=== PATIENT | female | born 1965 ===

== ENCOUNTER 2024-12-06 08:22 | Outpatient (OUT) | payer OTHER, SELFPAY ==
--- NOTE | 2024-12-06 | XR_ITS ---
[address] [address] Patient Name: SEVERO CARRASCO MRN: [id number] date: 1965 Sex: F Assigned Patient Location: Current Patient Location: Accession/Order Number: [id number] Exam Date: 12/06/2024 08:23 Report Date: 12/06/2024 21:49 At the request of: THU DONG Procedure: XR finger RT min 2V EXAM: XR finger RT min 2V HISTORY: RIGHT FINGER PAIN COMPARISON: None. FINDINGS/IMPRESSION: 1. Mildly displaced fracture of the fourth distal phalanx. There is overlying soft tissue swelling. 2. No significant joint degeneration. 3. Normal alignment of the wrist. Electronically authenticated by: TERENCE LIAO Date: 12/06/2024 21:49
== END 2024-12-06 08:23 | disposition home or self-care (01) ==
LOC: EC 08:22
PROVIDERS: Visit Provider Orthopaedic Surgery
DX: S62.654B Nondisplaced fracture of middle phalanx of right ring finger, initial encounter for open fracture (principal)
CPT/HCPCS: 73140

== ENCOUNTER 2024-12-27 08:18 | Outpatient (OUT) | payer OTHER, SELFPAY ==
--- NOTE | 2024-12-27 | XR_ITS ---
The [address] [address] Patient Name: SEVERO CARRASCO MRN: [id number] date: 1965 Sex: F Assigned Patient Location: Current Patient Location: Accession/Order Number: [id number] Exam Date: 12/27/2024 08:19 Report Date: 12/27/2024 08:43 At the request of: THU DONG Procedure: XR finger RT min 2V PROCEDURE: XR finger RT min 2V COMPARISON: 12/06/2024 HISTORY: RIGHT FINGER PAIN FINDINGS: BONES:Stable complex fracture involving the fourth distal phalanx. Increase in lysis with no significant bony bridging. No dislocation SOFT TISSUES:Soft tissue swelling tip of the fourth finger EFFUSION:None visible. OTHER: Negative. XR/XR finger RT min 2V IMPRESSION: Grossly stable complex fracture of the fourth distal phalanx with no significant interval bone formation Electronically authenticated by: MATTY APARICIO Date: 12/27/2024 08:43
--- OUTSIDE RECORDS SUMMARY | 2024-12-27 08:33 | XMS_ITS | CCD ---
Author Organization [facility] Care Team Providers Care Rand Sewer Name Role Phone Unavailable Primary Care Provider UnavailAce Harrell MD Primary Care Provider Ace Quigley MD Primary Care Provider ACE QUIGLEY Primary Care Unavailable ENEDINA SMYTH Attending Unavailable OTTO HERNANDEZ Admitting Unavailable OTTO HERNANDEZ Attending Unavailable ACE QUIGLEY Primary Care Unavailable ACE QUIGLEY Primary Care Unavailable JOANIE BEASLEY Referring Unavailable JOANIE BEASLEY Referring Unavailable ACE QUIGLEY Primary Care Unavailable ACE UQIGLEY Referring Unavailable ACE QUIGLEY Primary Care Unavailable ACE QUIGLEY Primary Care Unavailable PIYUSH KUNZ Attending Unavailable Medications Current Medications Medication Drug Class(es) Dates Sig (Normalized) Sig (Original) cephalexin 500 mg oral capsule (2 sources) Cephalosporin Antibacterial Start: 11-21-2024 End: 11-28-2024 take 1 capsule by mouth three times daily cephALEXin (KEFLEX) 500 MG capsule Take 1 capsule by mouth 3 times daily for 7 days 21 capsule 11/21/2024 11/28/2024 Active Start: 11-21-2024 End: 11-21-2024 take 1 dose by mouth once 500 mg, Oral, ONCE, 1 dose, On 11/21/24 at 1115, Antimicrobial Indications: Skin and Soft Tissue Infection 12 hr guaiFENesin 600 mg / pseudoephedrine hydrochloride 60 mg extended release oral tablet (1 source) alpha-Adrenergic Agonist Start: 08-18-2021 pseudoephedrine-guaiFENesin (MUCINEX D) 60-600 MG per extended release tablet 1 twice daily as needed for congestion 20 tablet 1 08/18/2021 Active Start: 08-18-2021 pseudoephedrin e-guaiFENesin (MUCINEX D) 60-600 MG per extended release tablet 1 twice daily as needed for congestion 20 tablet 1 08/18/2021 Active hyoscyamine sulfate 0.125 mg sublingual tablet (1 source) Start: 04-18-2013 End: 08-18-2021 hyoscyamine (LEVSIN/SL) 0.[address] 1 tablet under the tongue every 4 hours as needed for Cramping. 15 tablet 0 04/18/2013 08/18/2021 Discontinued (LIST CLEANUP) losartan potassium 25 mg oral tablet (4 sources) Angiotensin 2 Receptor Gigi Start: 01-13-2024 take 1 tablet by mouth at bedtime losartan (COZAAR) 25 MG tablet Indications: Primary hypertension Take 1 tablet by mouth in the morning and at bedtime 180 tablet 3 01/13/2024 Active Start: 11-28-2022 take 1 tablet by ella th once daily losartan (COZAAR) 25 MG tablet Indications: Primary hypertension Take 1 tablet by mouth daily 30 tablet 3 11/28/2022 Active metoprolol tartrate 25 mg oral tablet (4 sources) beta-Adrenergic Gigi Start: 01-13-2024 take 0.5 tablet by mouth twice daily metoprolol tartrate (LOPRESSOR) 25 MG tablet Indications: Primary hypertension Take 0.5 tablets by mouth 2 times daily 30 tablet 2 01/13/2024 Active Start: 11-28-2022 take 0.5 tablet by m outh twice daily metoprolol tartrate (LOPRESSOR) 25 MG tablet Indications: Primary hypertension Take 0.5 tablets by mouth 2 times daily 30 tablet 2 11/28/2022 Active mirtazapine 15 mg oral table t (3 sources) Start: 01-15-2022 mirtazapine (R EMERON) 15 MG tablet Take 1 tablet by mouth 0 01/15/2022 Active Completed/Discontinued Medications Medication Drug Class(es) Dates Sig (Normalized) Sig (Original) 10 ml lidocaine hydrochloride 10 mg/ml injection (1 source) Antiarrhythmic, Amide Local Anesthetic Start: 11-21-2024 End: 11-21-2024 5 mL, IntraDERmal, ONCE, 1 dose, On 11/21/24 at 1015 Problems Active Problems Problem Classification Problem Date Documented Da te Episodic/Chronic Essential hypertension (6 sources) Essential hypertension; Translations: [Essential (primary) hypertension] Onset: 09-18-2021 09-18-2021 Chronic Fracture of upper limb (2 sources) Open fracture of distal phalanx of finger; Translations: [Displaced fracture of distal phalanx of unspecified finger, initial encounter for open fracture] Onset: 11-21-2024 11-21-2024 Episodic Open wounds of extremities (2 sources) Laceration of right ring finger; Translations: [Laceration without foreign body of right ring finger without damage to nail, initial encounter] Onset: 11-21-2024 11-21-2024 Episodic Other lower respiratory disease (2 sources) Dyspnea; Translations: [Shortness of breath] Episodic Other screening for suspected conditions (not mental disorders or infectious disease) (2 sources) Patient encounter status; Translations: [Encounter for screening for malignant neoplasm of colon] Onset: 03-17-2024 03-04-2024 Episodic Otitis media and related conditions (1 source) Dysfunction of right eustachian tube; Translations: [Other specified disorders of Eustachian tube, right ear] Episodic Past or Other Problems Problem Classification Problem Date Documented Da te Episodic/Chronic Nonspecific chest pain (3 sources) Chest pain; Translations: [Chest pain, unspecified] Onset: 03-25-2023 Episodic Other ear and sense organ disorders (4 sources) Tinnitus of vascular origin; Translations: [Pulsatile tinnitus, left ear] Onset: 10-31-2021 10-31-2021 Episodic Other gastrointestinal disorders (1 source) Stool DNA-based colorectal cancer screening positive; Translations: [Other fecal abnormalities] Onset: 03-16-2024 03-16-2024 Episodic Other lower respiratory disease (1 source) Shortness of breath; Translations: [Shortness of breath] Onset: 04-22-2023 Episodic Other nervous system disorders (1 source) Paresthesia of skin; Translations: [Paresthesia of skin] Onset: 03-25-2023 Episodic Results Test Name Value Interpretation Reference Range Facility [facility] 11-21-2024 Piyush Kunz DO 11/21/2024 11:37 AM [facility] Date/Time: 11/21/2024 10:04 AM Performed by: Piyush Kunz DO Authorized by: Piyush Kunz DO Consent: Consent obtained: Verbal Consent given by: Patient Risks discussed: Need for additional repair, infection, nerve damage, poor wound healing, vascular damage and pain Chaplin protocol: Procedure explained and questions answered to patient or proxy's satisfaction: yes Relevant documents present and verified: yes Test results available: yes Imaging studies available: yes Patient identity confirmed: Verbally with patient and hospital-assigned identification number Anesthesia: Anesthesia method: Local infiltration Local anesthetic: Lidocaine 1% w/o epi Laceration details: Location: Finger Finger location: R ring finger Exploration: Wound extent: fascia violated Contaminated: yes Treatment: Area cleansed with: Povidone-iodine Amount of cleaning: Extensive Irrigation solution: Sterile saline and sterile water Irrigation method: Pressure wash Debridement: None Undermining: None Layers/structures repaired: Deep subcutaneous Deep subcutaneous: Suture size: 4-0 Skin repair: Repair method: Sutures Suture size: 4-0 Suture material: Nylon Suture technique: Simple interrupted Number of sutures: 4 Approximation: Approximation: Loose Post-procedure details: Dressing: Splint for protection and non-adherent dressing Procedure completion: Tolerated well, no immediate complications Comments: Due to the pulp of the distal phalanx protruding out slightly from the laceration and underlying nondisplaced tuft fracture I placed 4 loose stitches to approximate laceration. The wound was thoroughly cleansed with Betadine and sterile saline prior to placing the sutures. Patient's tetanus was updated and antibiotics were started. Patient is supposed to follow-up with occupational health tomorrow. Splint was also applied for protection. [facility] XR HAND RIGHT (MIN 3 VIEWS)o n 11-21-2024 XR HAND RIGHT (MIN 3 VIEWS) EXAMINATION: THREE XRAY VIEWS OF THE RIGHT HAND 11/21/2024 10:05 am COMPARISON: None. HISTORY: ORDERING SYSTEM PROVIDED HISTORY: pain, laceration 4th digit. TECHNOLOGIST PROVIDED HISTORY: pain, laceration 4th digit. FINDINGS: Mineralization appears normal. There is soft tissue swelling and laceration at the 4th digit distally. There is an oblique fracture of the shaft of the 4th distal phalanx which is not significantly displaced. A portion of the cortex dorsally appears impacted into the medullary cavity. Elsewhere, no fracture dislocation is identified. The joint spaces are unremarkable. IMPRESSION: Soft tissue swelling and laceration at the 4th digit distally with a nondisplaced oblique fracture of the shaft of the 4th distal phalanx. A portion of the cortex dorsally is impacted. Interpreted by: Lai Russell MD Signed by: Lai Russell MD 11/21/24 Final result Normal [facility] XR Hand - right 3 Viewson Soft tissue swelling and laceration at the 4th digit distally with a nondisplaced oblique fracture of the shaft of the 4th distal phalanx. A portion of the cortex dorsally is impacted. [facility] EXAMINATION: THREE XRAY VIEWS OF THE RIGHT HAND 11/21/2024 10:05 am COMPARISON: None. HISTORY: ORDERING SYSTEM PROVIDED HISTORY: pain, laceration 4th digit. TECHNOLOGIST PROVIDED HISTORY: pain, laceration 4th digit. FINDINGS: Mineralization appears normal. There is soft tissue swelling and laceration at the 4th digit distally. There is an oblique fracture of the shaft of the 4th distal phalanx which is not significantly displaced. A portion of the cortex dorsally appears impacted into the medullary cavity. Elsewhere, no fracture dislocation is identified. The joint spaces are unremarkable. [facility] Lai Russell MD - 11/21/2024 EXAMINATION: THREE XRAY VIEWS OF THE RIGHT HAND 11/21/2024 10:05 am COMPARISON: None. HISTORY: ORDERING SYSTEM PROVIDED HISTORY: pain, laceration 4th digit. TECHNOLOGIST PROVIDED HISTORY: pain, laceration 4th digit. FINDINGS: Mineralization appears normal. There is soft tissue swelling and laceration at the 4th digit distally. There is an oblique fracture of the shaft of the 4th distal phalanx which is not significantly displaced. A portion of the cortex dorsally appears impacted into the medullary cavity. Elsewhere, no fracture dislocation is identified. The joint spaces are unremarkable. IMPRESSION: Soft tissue swelling and laceration at the 4th digit distally with a nondisplaced oblique fracture of the shaft of the 4th distal phalanx. A portion of the cortex dorsally is impacted. [facility] Radiology Study observation (narrative) [facility] XR Hand - right 3 ViewsOrder ed By: Lai Russell on 11-21-2024 [facility] [employer] Work Phone: Surgical Pathology Reporton 03-17-2024 Surgical Pathology Report (NOTE) Path Number: [id number] -- Diagnosis -- Sigmoid colon, polyp, biopsy: Tubular adenoma. Maximo Byrd M.D. Electronically Signed Out rdd/03/19/2024 Clinical Information Pre-Op Diagnosis: COLON CANCER SCREENING Operative Findings: SIGMOID COLON POLYP Operation Performed: COLONOSCOPY POLYPECTOMY HOT kb Source of Specimen A: SIGMOID COLON POLYP Gross Description JUDIT TOLLIVER SIGMOID COLON POLYP Received in formalin is a 0.7 x 0.6 x 0.4 cm polypoid portion of oscar tissue, inked and bisected. Entirely 1cs. jj tm Chantal Magallanes/kb2:03/18/2024 Microscopic Description Microscopic examination performed. Processing Lab: [address] [id number] Interpretation Performed at [address] [id number] SURGICAL PATHOLOGY CONSULTATION Patient Name: JUDIT TOLLIVER Med Rec: [id number] [facility] [employer] [facility] ANATOMIC PATHOLOGY [address] [place] [id number] Normal [facility] CARDIAC STRESS TESTon 2022 CARDIAC STRESS TEST [facility] [address] [place] [address] CARDIAC STRESS TEST PATIENT NAME: JUDIT TOLLIVER : 1965 MED REC NO: [id number] ROOM: ACCOUNT NO: [id number] ADMIT DATE: 04/22/2023 PROVIDER: Jayme Beasley MD DATE OF STUDY: 04/22/2023 NAME OF TEST: Treadmill Myoview stress test. REASON FOR TEST: Chest pain. The patient exercised 5 minutes on accelerated Adarsh protocol. Peak heart rate was 139, which is 85% of maximum predicted heart rate. She achieved 8.5 METs. She had no chest pain. She had borderline ST depression inferolaterally, which did not quite meet significance. She did have PVCs. This is a borderline stress test with mild ST depression inferolaterally, not quite meeting significance for ischemia. Myoview to follow. JAYME BEASLEY MD [id number] Doc#: [id number] CC: Ace Sarkarlalito Normal [facility] APTTon 03-25-2023 aPTT Coag (Bld) [Time] 30.8 s Normal 23.9-33.8 [facility] Comment on above: Result Comment: IV Heparin Therapy Range: 62.0-94.0 Performed By: #### C DP, TROPI, PT, PTT, BMP, BNP #### [facility] [address] [place], [place] [id number] Emergency Medical Technician Basic: Bunny Jenkins MD Basic Metabolic Profon 03-25 Anion gap [Moles/Vol] 10 mmol/L Normal 08-03 [facility] Comment on above: Performed By: #### C DP, TROPI, PT, PTT, BMP, BNP #### [facility] [address] [place], [place] [id number] Emergency Medical Technician Basic: Bunny Jenkins MD BUN/CRE Ratio 11 Normal - [facility] Comment on above: Performed By: #### C DP, TROPI, PT, PTT, BMP, BNP #### [facility] [address] [place], [place] [id number] Emergency Medical Technician Basic: Bunny Jenkins MD Calcium [Mass/Vol] 9.4 mg/dL Normal 8.6-10.4 [facility] Comment on above: Performed By: #### C DP, TROPI, PT, PTT, BMP, BNP #### [facility] [address] [place], [place] [id number] Emergency Medical Technician Basic: Bunny Jenkins MD Chloride [Moles/Vol] 103 mmol/L Normal 98-107 [facility] Comment on above: Performed By: #### C DP, TROPI, PT, PTT, BMP, BNP #### [facility] [address] [place], [place] [id number] Emergency Medical Technician Basic: Bunny Jenkins MD CO2 [Moles/Vol] 24 mmol/L Normal 20-31 [facility] Comment on above: Performed By: #### C DP, TROPI, PT, PTT, BMP, BNP #### [facility] [address] [place] [address] Emergency Medical Technician Basic: Bunny Jenkins MD Creatinine [Mass/Vol] 0.83 mg/dL Normal 0.50-0.90 [facility] Comment on above: Performed By: #### C DP, TROPI, PT, PTT, BMP, BNP #### [facility] [address] [place] [address] Emergency Medical Technician Basic: Bunny Jenkins MD GFR/1.73 sq M.predicted among non-blacks MDRD (S/P/Bld) [Vol rate/Area] mL/min/{1.73_m2} Normal >60 [facility] Comment on above: Result Comment: These results are not intended for use in patients <18 years of age. eGFR results are calculated without a race factor using the 2020 CKD-EPI equation. Careful clinical correlation is recommended, particularly when comparing to results calculated using previous equations. The CKD-EPI equation is less accurate in patients with extremes of muscle mass, extra-renal metabolism of creatine, excessive creatine ingestion, or following therapy that affects renal tubular secretion. Performed By: #### C DP, TROPI, PT, PTT, BMP, BNP #### [facility] [address] [place] [address] Emergency Medical Technician Basic: Bunny Jenkins MD Glucose [Mass/Vol] 108 mg/dL High 70-99 [facility] Comment on above: Performed By: #### C DP, TROPI, PT, PTT, BMP, BNP #### [facility] [address] [place] [address] Emergency Medical Technician Basic: Bunny Jenkins MD Potassium [Moles/Vol] 3.1 mmol/L Low 3.7-5.3 [facility] Comment on above: Performed By: #### C DP, TROPI, PT, PTT, BMP, BNP #### [facility] [address] [place] [address] Emergency Medical Technician Basic: Bunny Jenkins MD Sodium [Moles/Vol] 137 mmol/L Normal 135-144 [facility] Comment on above: Performed By: #### C DP, TROPI, PT, PTT, BMP, BNP #### [facility] [address] [place] [address] Emergency Medical Technician Basic: Bunny Jenkins MD Urea nitrogen [Mass/Vol] 9 mg/dL Normal 6-20 [facility] Comment on above: Performed By: #### C DP, TROPI, PT, PTT, BMP, BNP #### [facility] [address] [place] [id number] Emergency Medical Technician Basic: Bunny Jenkins MD Brain Natri. Peptideon 03-25 Natriuretic peptide B (Bld) [Mass/Vol] 422 pg/mL High <300 [facility] Comment on above: Result Comment: An age-independent cutoff point of 300 pg/ml has a 98% negative predictive value excluding acute heart failure. Performed By: #### C DP, TROPI, PT, PTT, BMP, BNP #### [facility] [address] [place] [address] Emergency Medical Technician Basic: Bunny Jenkins MD CBC with Diffon 03-25-2023 Abs. Basophil 0.00 k/uL Normal 0.0-0.2 [facility] Comment on above: Performed By: #### C DP, TROPI, PT, PTT, BMP, BNP #### [facility] [address] [place] [address] Emergency Medical Technician Basic: Bunny Jenkins MD Abs.Neutrophil (Seg) 3.30 k/uL Normal 2.5-7.0 [facility] Comment on above: Performed By: #### C DP, TROPI, PT, PTT, BMP, BNP #### [facility] [address] [place] [address] Emergency Medical Technician Basic: Bunny Jenkins MD Auto Diff Performed YES Normal [facility] Comment on above: Performed By: #### C DP, TROPI, PT, PTT, BMP, BNP #### [facility] [address] [place] [address] Emergency Medical Technician Basic: Bunny Jenkins MD Basophils/100 WBC (Bld) 1 % Normal 0-2 [facility] Comment on above: Performed By: #### C DP, TROPI, PT, PTT, BMP, BNP #### [facility] [address] [place] [address] Emergency Medical Technician Basic: Bunny Jenkins MD Eosinophils (Bld) [#/Vol] 0.10 10*3/uL Normal 0.0-0.4 [facility] Comment on above: Performed By: #### C DP, TROPI, PT, PTT, BMP, BNP #### [facility] [address] [place] [address] Emergency Medical Technician Basic: Bunny Jenkins MD Eosinophils/100 WBC (Bld) 1 % Normal 0-5 [facility] Comment on above: Performed By: #### C DP, TROPI, PT, PTT, BMP, BNP #### [facility] [address] [place] [address] Emergency Medical Technician Basic: Bunny Jenkins MD Erythrocyte distribution width (RBC) [Ratio] 13.0 % Normal 12.1-15.2 [facility] Comment on above: Performed By: #### C DP, TROPI, PT, PTT, BMP, BNP #### [facility] [address] [place] [address] Emergency Medical Technician Basic: Bunny Jenkins MD Hematocrit (Bld) [Volume fraction] 32.2 % Low 36-46 [facility] Comment on above: Performed By: #### C DP, TROPI, PT, PTT, BMP, BNP #### [facility] [address] [place] [id number] Emergency Medical Technician Basic: Bunny Jenkins MD Hemoglobin (Bld) [Mass/Vol] 10.9 g/dL Low 12.0-16.0 [facility] Comment on above: Performed By: #### C DP, TROPI, PT, PTT, BMP, BNP #### [facility] [address] [place] [address] Emergency Medical Technician Basic: Bunny Jenkins MD Lymphocytes (Bld) [#/Vol] 3.10 10*3/uL Normal 1.0-4.8 [facility] Comment on above: Performed By: #### C DP, TROPI, PT, PTT, BMP, BNP #### [facility] [address] [place] [address] Emergency Medical Technician Basic: Bunny Jenkins MD Lymphocytes/100 WBC (Bld) 45 % High 15-40 [facility] Comment on above: Performed By: #### C DP, TROPI, PT, PTT, BMP, BNP #### [facility] [address] [place] [address] Emergency Medical Technician Basic: Bunny Jenkins MD MCH (RBC) [Entitic mass] 30.9 pg Normal 26-34 [facility] Comment on above: Performed By: #### C DP, TROPI, PT, PTT, BMP, BNP #### [facility] [address] [place] [address] Emergency Medical Technician Basic: Bunny Jenkins MD MCHC (RBC) [Mass/Vol] 33.7 g/dL Normal 31-37 [facility] Comment on above: Performed By: #### C DP, TROPI, PT, PTT, BMP, BNP #### [facility] [address] [place] [address] Emergency Medical Technician Basic: Bunny Jenkins MD MCV (RBC) [Entitic vol] 91.8 fL Normal 80-100 [facility] Comment on above: Performed By: #### C DP, TROPI, PT, PTT, BMP, BNP #### [facility] [address] [place] [address] Emergency Medical Technician Basic: Bunny Jenkins MD Monocytes (Bld) [#/Vol] 0.40 10*3/uL Normal 0.0-1.0 [facility] Comment on above: Performed By: #### C DP, TROPI, PT, PTT, BMP, BNP #### [facility] [address] [place] [address] Emergency Medical Technician Basic: Bunny Jenkins MD Monocytes/100 WBC (Bld) 6 % Normal 4-8 [facility] Comment on above: Performed By: #### C DP, TROPI, PT, PTT, BMP, BNP #### [facility] [address] [place] [address] Emergency Medical Technician Basic: Bunny Jenkins MD Neutrophil (Seg) 47 % Normal 47-75 [facility] Comment on above: Performed By: #### C DP, TROPI, PT, PTT, BMP, BNP #### [facility] [address] [place] [address] Emergency Medical Technician Basic: Bunny Jenkins MD Platelets (Bld) [#/Vol] 201 10*3/uL Normal 140-450 [facility] Comment on above: Performed By: #### C DP, TROPI, PT, PTT, BMP, BNP #### [facility] [address] [place], [place] [id number] Emergency Medical Technician Basic: Bunny Jenkins MD RBC (Bld) [#/Vol] 3.51 10*6/uL Low 4.0-5.2 [facility] Comment on above: Performed By: #### C DP, TROPI, PT, PTT, BMP, BNP #### [facility] [address] [place], [place] [id number] Emergency Medical Technician Basic: Bunny Jenkins MD WBC (Bld) [#/Vol] 7.0 10*3/uL Normal 3.5-11.0 [facility] Comment on above: Performed By: #### C DP, TROPI, PT, PTT, BMP, BNP #### [facility] [address] [place], [place] [id number] Emergency Medical Technician Basic: Bunny Jenkins MD PTon 03-25-2023 INR Coag (PPP) [Relative time] 1.0 {INR} Normal [facility] Comment on above: Result Comment: Therapeutic Range: Moderate Anticoagulant Intensity: INR = 2.0-3.0 High Anticoagulant Intensity: INR = 2.5-3.5 Performed By: #### C DP, TROPI, PT, PTT, BMP, BNP #### [facility] [address] [place], [place] [id number] Emergency Medical Technician Basic: Bunny Jenkins MD PT Coag (PPP) [Time] 13.4 s Normal 11.5-14.2 [facility] Comment on above: Performed By: #### C DP, TROPI, PT, PTT, BMP, BNP #### [facility] [address] [place], [place] [id number] Emergency Medical Technician Basic: Bunny Jenkins MD Troponinon 03-25-2023 Troponin, High Sens <6 Normal 0-14 [facility] Comment on above: Result Comment: High Sensitivity Troponin values cannot be compared with other Troponin methodologies. Performed By: #### T ROPI #### [facility] [address] [place] [address] Emergency Medical Technician Basic: Bunny Jenkins MD Troponin, High Sens 7 ng/L Normal 0-14 [facility] Comment on above: Result Comment: High Sensitivity Troponin values cannot be compared with other Troponin methodologies. Performed By: #### C DP, TROPI, PT, PTT, BMP, BNP #### [facility] [address] [place], [place] [id number] Emergency Medical Technician Basic: Bunny Jenkins MD XR CHEST PORTABLEon 03-25-20 XR CHEST PORTABLE EXAM: XR CHEST PORTABLE HISTORY: Reason for exam:->chest pain COMPARISON: Two-view chest from 11/28/2009. TECHNIQUE: Portable chest was done at 6:11 PM. FINDINGS: Trachea, mediastinum and heart size are unremarkable. No infiltrate or nodule or effusion or pneumothorax is noted. The diaphragm and bony elements are intact. IMPRESSION: Nonacute portable chest. Interpreted by: Arian Leyva DO Signed by: Arian Leyva DO 03/25/23 Final result Normal [facility] Workers' Comp Officeon 12-12 Workers' Comp Office [id number] Normal [facility] Progress Note-Physicianon Progress Note-Physician Patient: JUDIT TOLLIVER Age: 55 years Sex: Female : 1965 Associated Diagnoses: None Author: Sandra COTTON, Daniel Bruce Basic Information F IN: [id number]: Date of injury: 11/27/2020. Subjective 55-year-old female presents today for follow-up acute injury. To summarize: Patient was working when she stepped off an antifatigue mat and misjudged the depth of the math in the differential. As she stepped down she noticed an acute pain in the right hip. She continued to have pain when she stepped down with her right foot. She was seen on the day of injury. She was started on a course of prednisone as well as ice and not heat. Patient reported the pain got worse over the next couple of days despite intervention. She saw a chiropractor and was adjusted on 11/28/2020 as well as 11/30/2020. She returned to occupational health on 12/04/2020. At that time she was still having pain most in the area of the upper buttock. Pain tended to go down towards midline in the lower aspect of her but into the area of the distal sacrum just off midline on the right side. The pain that was wrapping around more obvious and initial presentation was not as dramatic. She complained of weakness when standing for any period of time particular that leg. Patient reported on that date that had standing bending over to touch her toes actually seems to help. She was tolerating the prednisone not having difficulty with regards to heartburn acid reflux or change in stool. On that date we ordered x-rays of the right hip and pelvis as well as the lumbar sacral spine to better elucidate why source of the injury and pain process. We left her on light duty at work until we could review x-rays and gave her a slightly longer period of time to reduce irritability to the region. Advised return to occupational health clinic for review of x-rays and repeat exam on 12/11/2020. Patient returns today in the middle of her shift. She is currently on light duty as described above. Her last dose of any type of medication was ibuprofen earlier today. She states that her current level of discomfort is about a 2 at worst. Typically it is just the upper part of her buttock feels like it is bruised to a certain extent. She denies any change in bowel or bladder she denies any change in strength gait or coordination. Denies any loss of sensation. She personally feels like she is ready to return to work. We have discussed the nature of the injury at length. Have reviewed the results of her x-rays with her and shoulder the type radiological report. Explained to the patient I believe that the injury occurred when she stepped down tighten up her upper gluteal muscle and then pushed the branches of the sciatic nerve against her bony structure suffering injury that then resulted in irritability and spasm. Suggested to her that continuing to be flexible as well as attention to body mechanics should help reduce the chances for further issues. Review of Systems 10 point review of systems otherwise negative. Health Status Allergies: Allergic Reactions (Selected) No Known Allergies Current medications: Home Medications (3) Active hyoscyamine ibuprofen Tylox 500 mg-5 mg Cap 1 cap(s), PRN, Oral, q4hr Problem list: Patient Stated Tobacco use / SNOMED CT [id number]- [id number] / Confirmed Added secondary to social history documentation. All Problems Calculus of gallbladder / SNOMED CT [id number]- [id number] / Confirmed Cholecystitis / SNOMED CT [id number]- [id number] / Confirmed Tobacco use / SNOMED CT [id number]- [id number] / Confirmed Added secondary to social history documentation. Histories Past Medical History: Active Calculus of gallbladder ([id number]-442H-6537 -[id number]-[id number]) Cholecystitis ([id number] -[id number]) Family History: No family history items have been selected or recorded. Social History Social & Psychosocial Habits Alcohol 04/27/2013 Use: Current Frequency: 1-2 times per month Substance Abuse 04/27/2013 Risk Assessment: Denies Substance Abuse Tobacco 04/27/2013 Tobacco Use: Current Type: Cigarettes Comment: 1 ppd - 04/27/2013 16:16 - Jayna RN, BSN, Jojo . Objective No qualifying data available Constitutional: Slender white female no apparent distress. Musculoskeletal: Sitting without difficulty. Normal lumbar lordosis. Negative discomfort or weakness with hip flexion and in sitting position. Negative discomfort or hesitation with hip flexion and extension of the knee while sitting. Standing without limitation to flexion able to bring fingers to toes without difficulty. Bilateral lateral hip up into the low back region without tenderness no tenderness over bilateral SI notch. Upper gluteal region on the right side minimally tender to palpation. Neurologic: Deep tendon reflexes patellar 2+ bilateral equal, bilateral Achilles 2+ without clonus. Review / Management Radiology results: X-ray, 12/06/2020: 3 views of the pelvis and right hip: Indication: Sciatica Findings: No lytic or sclerotic lesions. No acute fracture or subluxation. Bones are in anatomic alignment. Soft tissues are unremarkable. Impression no acute osseous changes. X-ray spine lumbosacral minimum 4 views Indication: Sciatica Findings: No lytic or sclerotic lesions. There is no acute fracture or subluxation. There is no loss of vertebral body height. The visualized bones are demineralized which may be secondary to osteoporosis, osteopenia. May consider bone densitometry study. The bones are in anatomic alignment. There is preservation of the lordotic curvature of the lumbar spine. There is mild intervertebral disc space narrowing at L4-5 and L5-S1. The SI joints are symmetric. Soft tissues are unremarkable. There are surgical clips in the right upper abdomen. Impression: No acute osseous changes. There is mild spondylosis of the mild disc space narrowing at L4-5 and L5-S1. . Impression and Plan Diagnosis: Sciatic pain (FGX22-HG M54.30, Working, Medical). 1. Sciatic pain: X-rays did not reveal any abnormality of the right hip. Minimal disc space narrowing at L4-5 and L5-S1. Suggesting possible radiculopathy to the right so she was stepping down. Should continue to respond to conservative treatment. Would continue to suggest increase in development of core strength as well as flexibility hamstring tension to more appropriate body mechanics. Return to work today full duty return to occupational health as needed. [facility] Comment on above: Result Comment: Elec tronically Signed By: Sandra COTTON, Daniel Bruce\.br\Date and Time Signed: 12/11/20 13:33 EST Workers' Comp Officeon 12-11 Workers' Comp Office [id number] 263#1.00CD:127 [facility] Registrationon 12-07-2020 Registration [id number] 12#1.00CD:127 [facility] XR Hip 2-3 Views Right + Pel vison 12-06-2020 XR Hip 2-3 Views Right + Pelvis Exam Date/Time: 12/04/2020 14:54 EST Reason for Exam: SCIATICA Report IMPRESSION: THERE ARE NO ACUTE OSSEOUS CHANGES. CLINICAL HISTORY: SCIATICA COMPARISON: NONE. FINDINGS: 3 views of the pelvis and right hip There are no lytic or sclerotic lesions. There is no acute fracture or subluxation. The bones are in anatomic alignment. Soft tissues are unremarkable. FINAL REPORT Dictated: 12/06/2020 11:11 am Jason Rivera MD, V. Signed (Electronic Signature): 12/06/2020 11:11 am Signed by: Jason Rivera MD, V. Transcribed by: JOSHUA Technologist: NAVID [facility] XR Spine Lumbosacral Minimum 4 Viewson 12-06-2020 XR Spine Lumbosacral Minimum 4 Views Exam Date/Time: 12/04/2020 14:53 EST Reason for Exam: SCIATICA Report IMPRESSION: There are no acute osseous changes. There is mild spondylosis of mild disc space narrowing at L4-L5 and L5-S1. CLINICAL HISTORY: SCIATICA COMPARISON: Lumbar spine x-rays from 03/04/2011 FINDINGS: There are no lytic or sclerotic lesions. There is no acute fracture or subluxation. There is no loss vertebral body height. The visualized bones are demineralized which may be secondary to osteoporosis, osteopenia. May consider bone densitometry study. The bones are in anatomic alignment. There is preservation of the lordotic curvature of the lumbar spine. There is mild intervertebral disc space narrowing at L4-L5 and L5-S1. The SI joints are symmetric. Soft tissues are unremarkable. There are surgical clips in the right upper quadrant. FINAL REPORT Dictated: 12/06/2020 11:05 am Jason Rivera MD, V. Signed (Electronic Signature): 12/06/2020 11:05 am Signed by: Jason Rivera MD, V. Transcribed by: JOSHUA Technologist: NAVID [facility] Coding Summary.on 12-05-2020 Coding Summary. CODING DATE: 12/05/2020 FINAL [facility] STATUS: Home (Routine DC) PAYOR: Worker's Compensation APC DESCRIPTION 5522 Level 2 Imaging without Contrast ADMIT DX: REASON FOR VISIT DX: M54.30 Sciatica, unspecified side FINAL DX: PRINCIPAL: M54.30 Sciatica, unspecified side SECONDARY: PYMT PROC APC STAT DESCRIPTION DOCTOR NAME DATE NOTE: The code number assigned matches the documented diagnosis and / or procedure in the patient's chart. However, the narrative phrase printed from the coding software may appear abbreviated, or result in slightly different terminology. Coded By: Madeleine Bruno CphT Date Saved: 12/05/2020 09:15 am [facility] Workers' Comp Officeon 12-05 Workers' Comp Office [id number] 264#1.00CD:127 [facility] Workers' Comp Office [id number] 69#1.00CD:127 [facility] Workers' Comp Office [id number] 56#1.00CD:127 [facility] Workers' Comp Office [id number] 70#1.00CD:127 [facility] Consent for Treatmenton 11-17 Consent for Treatment [id number] B3#1.00CD:127 [facility] Physician Orderon 12-04-2020 Physician Order [id number] 324#1.00CD:127 [facility] Progress Note-Physicianon Progress Note-Physician Patient: JUDIT TOLLIVER Age: 55 years Sex: Female : 1965 Associated Diagnoses: None Author: Daniel Flores MD Basic Information F IN: [id number]. Date of injury 11/27/2020 Subjective This 55-year-old female presents today for follow-up initial injury 11/27/2020. To summarize she stepped off rubberized antifatigue mat suffering acute pain and injury to her right hip, low back and buttock region. She was seen that day 11/27/2020, started on a course of prednisone as well as ice and not heat. We left her off on 111 and 112 and asked to return to work on 11/29/2020. As of 11/29/2020 she did not feel comfortable returning to work and took a vacation day. She then called off on 11/30/2020. She worked on 12/01/2020 and 12/02/2020. She states that the pain went from about a 5 to a 9 by the end of her shift. Note the patient works about a 10-hour shift. Most of involves standing and fast motion moving from side to side on and off that same map. She went and saw a chiropractor on 11/28/2020 and 11/30/2020. Initially she was told that she was out of place by at least 2 to 3 inches. He put her back in place and she felt a little bit better. She went back on 11/30/2020 and was told she was a still a little bit out of place and was adjusted. She did not go back. She was off on 12/03/2020 and today 12/04/2020 for the holiday. She states that her pain today is 3-5. 5 when she steps off and landed hard on her heel up into the area of the upper to mid buttock area into the sacrum. Patient states that she still has pain mostly in the area of the upper buttock. It tends to go down towards midline on the lower aspect of her buttock and into the area of the distal sacrum just off midline. The pain that was wrapping around more obvious at her initial presentation is no longer as dramatic. She can been standing but is limited secondary to weakness. States that standing and bending over to touch her toes actually seems to help because it stretches out the area of the low back in the upper buttock area. She denies any loss of sensation weakness or foot drop. She denies any change in bowel or bladder function. She is tolerating the prednisone and not having any difficulty with regards to heartburn acid reflux or change in stool. Review of Systems Otherwise negative except as described above. Health Status Allergies: Allergic Reactions (All) No Known Allergies Current medications: Home Medications (3) Active hyoscyamine ibuprofen Tylox 500 mg-5 mg Cap 1 cap(s), PRN, Oral, q4hr Problem list: Patient Stated Tobacco use / SNOMED CT [id number]- [id number] / Confirmed Added secondary to social history documentation. All Problems Calculus of gallbladder / SNOMED CT [id number]- [id number] / Confirmed Cholecystitis / SNOMED CT [id number]- [id number] / Confirmed Tobacco use / SNOMED CT [id number]- [id number] / Confirmed Added secondary to social history documentation. Histories Past Medical History: Active Calculus of gallbladder ([id number] -[id number]) Cholecystitis ([id number] -[id number]) Family History: No family history items have been selected or recorded. Social History Social & Psychosocial Habits Alcohol 04/27/2013 Use: Current Frequency: 1-2 times per month Substance Abuse 04/27/2013 Risk Assessment: Denies Substance Abuse Tobacco 04/27/2013 Tobacco Use: Current Type: Cigarettes Comment: 1 ppd - 04/27/2013 16:16 - Jayna RN, BSN, Jojo . Objective Vital Signs (last 24 hrs) Last Charted Heart Rate Peripheral 72 bpm (DEC 04 13:07) SBP 132 mmHg (DEC 04 13:07) DBP 86 mmHg (DEC 04 13:07) Slender white female in no apparent distress though moving with care. Hesitance as she goes from sitting to a standing position. She demonstrates apprehension/hesita nce with putting her right foot down hard in moving from chair to table on table to chair. Palpation of lateral bilateral hips is nontender. She has no tenderness at the top of the SI notch on the right side. She does start to have some soft tissue tightness in the mid to lower gluteal region. And point tenderness near the lower edge of the SI joint on the right side. Dorsiflexion plantar flexion of the feet intact. Standing she can bend to almost 60 degrees at the waist without difficulty or pain. Impression and Plan Diagnosis: Sciatic pain (CTM10-IF M54.30, Working, Medical). #1. Right-sided sciatica Pain seems out of proportion to the nature and mechanism of action. Will obtain x-rays of the right hip and low back as well as pelvis. We will also set up for physical therapy to assess low back hip and SI pain. We will keep her off for the next 7 days and repeat exam on 12/11/2020. Her job description involves standing pacing side to side as well as rapid bending and twisting, with pivoting on 1 foot or another. Differential diagnosis includes injury to the SI joint in addition to right hip and lumbar spine. Based on body habitus patient is at risk for lumbar compression injury related to slight of frame. [facility] Comment on above: Result Comment: Elec tronically Signed By: Sandra COTTON, Daniel Bruce\.br\Date and Time Signed: 12/04/20 14:02 EST Workers' Comp Officeon 11-28 Workers' Comp Office [id number] 6#1.00CD:127 [facility] Workers' Comp Office [id number] 3#1.00CD:127 Normal [facility] Workers' Comp Office [id number] 0#1.00CD:127 [facility] Consenton 11-27-2020 Consent [id number] 12#1.00CD:127 [facility] Consent [id number] 17#1.00CD:127 Normal [facility] Progress Note-Physicianon Progress Note-Physician Patient: JUDIT TOLLIVER Age: 55 years Sex: Female : 1965 Associated Diagnoses: None Author: Daniel Flores MD Basic Information F IN: [id number] date of injury 11/27/2010 Subjective This 55-year-old white female presents today for initial injury evaluation of the right buttock and hip area. Patient was at work today when she stepped off an antifatigue mat with her right foot and hit the ground with her right foot after she had anticipated meeting contact with the ground. This caused her to hit the ground with her right foot as she was stepping off the mat with more of a flat-footed contact as she stepped forward. She developed a sudden jolt in pain going to the upper gluteal lateral hip and down around to the anterior thigh region. States that the pain was immediate when she stepped down. She denies any prior history of injury to the right hip or low back. She then decided to use of heating pad applied to the region. It seemed to help but then when she took the heating pad off it became worse. She presents today for evaluation and treatment. Patient denies any loss of sensation strength of the right lower extremity. She states she has been very active her whole life and moves very quickly at work. She describes her job position as moving from left to right on and off that antifatigue mat. She denies any sitting or heavy lifting. Patient just describes no prior history of gastritis, esophageal reflux, ulcer or ulcer disease. She denies any history of hypertension, or kidney disease. She denies any history of diabetes or elevated blood sugar. Review of Systems ROS - Provider Constitutional: no fever, no chills, no sweats, no weakness. Skin: no Jaundice, no rash, no lesions, no petechiae. ENMT: no ear pain, no sore throat, no congestion, no hoarseness. Respiratory: no shortness of breath, no cough, no orthopnea, no wheezing. Cardiovascular: no chest pain, no palpitations, no edema. Gastrointestinal: no nausea, no vomiting, no diarrhea, no GI bleeding. Genitourinary: no dysuria, no hematuria, no discharge, no pain. Musculoskeletal: no back pain, no trauma. With the exception as described above. Neurologic: no headache, no dizziness, no numbness, no weakness. Psychiatric: no sleeping problems, no irritability, no mood swings/depression. Heme/Lymph: no bleeding tendency, no bruising tendency, no petechiae, no swollen no dav. Allergy/Immuno logic: no seasonal allergies, no food allergies, no recurrent infections, no impaired immunity Health Status Allergies: Allergic Reactions (All) No Known Allergies Current medications: Home Medications (3) Active hyoscyamine ibuprofen Tylox 500 mg-5 mg Cap 1 cap(s), PRN, Oral, q4hr Problem list: Patient Stated Tobacco use / SNOMED CT [id number]- [id number] / Confirmed Added secondary to social history documentation. All Problems Calculus of gallbladder / SNOMED CT [id number]- [id number] / Confirmed Cholecystitis / SNOMED CT [id number]- [id number] / Confirmed Tobacco use / SNOMED CT [id number]- [id number] / Confirmed Added secondary to social history documentation. Histories Past Medical History: Active Calculus of gallbladder ([id number] -[id number]) Cholecystitis ([id number] -[id number]) Family History: No family history items have been selected or recorded. Social History Social & Psychosocial Habits Alcohol 04/27/2013 Use: Current Frequency: 1-2 times per month Substance Abuse 04/27/2013 Risk Assessment: Denies Substance Abuse Tobacco 04/27/2013 Tobacco Use: Current Type: Cigarettes Comment: 1 ppd - 04/27/2013 16:16 - Jayna RN, BSN, Jojo . Objective Vital Signs (last 24 hrs) Last Charted Temp Tympanic L 36DegC (NOV 27 13:49) Weight 105.4 pounds. Constitutional: Slender white female in no apparent distress. Musculoskeletal: Patient sitting with her right lower extremity extended and offloading her right buttock as she sits in the chair. She hesitates as she goes from a sitting to a standing position. Examination of the lower extremity bilaterally in the supine position demonstrates bilateral hip flexion greater than 120 degrees, as well as internal and external rotation well within normal limits. She has some pop and crepitus of the knee greater on the right than the left. No active effusion or warmth present. Some mild loss of hamstring flexibility of about 45 degrees bilaterally. While supine patient has elevation of bilateral lower extremities that is 5+ 5+ strength. She has resisted pressure to heel towards table 5+ 5+ strength as well without pain bilaterally. There is no tenderness of the greater trochanteric bursa region bilaterally. The right hip and gluteal area is absolutely nontender with out any loss of normal lordosis of the lower back. The right greater trochanteric area is nontender however definite tenderness of the upper gluteus particularly just at the area of the SI joint. Palpation of this area does produce some soft tissue irritability and that reproduces patient's discomfort with palpation. While sitting she has forward flexion to almost 45 degrees without difficulty. No tenderness above the level of the SI joint bilateral to palpation lumbar sacral spine. No obvious spasm to palpation noted either. Impression and Plan Diagnosis: Sciatic pain (EMB84-WO M54.30, Working, Medical). #1. Sciatica right-sided: Findings are consistent with sciatic irritation, with tenderness at around the SI joint in upper gluteal area. Plan: Have taken patient off of the remainder of the day as well as tomorrow. Of advised her that the pain will get worse before it gets better. Would anticipate it peaking sometime later on tomorrow. Have advised no more heat to that area. Advised in the future no heat for the first 48 to 72 hours. Ice alone. Suggest walking, or laying down. To avoid sitting or standing. If she is to use stairs to walk sideways and take 1 step at a time to avoid aggravation and the chance of fall. We will start her on prednisone 10 mg tablets 3 a day for 4 days, 2 a day for 4 days, 1 a day for 4 days, with food. She may take Tylenol in addition for pain. She may take up to 500 mg every 4 hours as needed. She is not to use Motrin Advil or Aleve while on the prednisone. After completing the prednisone she may go to the mtdp-xce-tgyxncj nonsteroidal of choice. Advised patient difficult to write for restricted duty return to work since most of her activity involves standing and moving and not sitting or climbing. As such she is needs to move a little slower and take your stepping off that antifatigue mat. We will see her back in 1 week. [facility] Comment on above: Result Comment: Elec tronically Signed By: Sandra COTTON, Daniel Bruce\.br\Date and Time Signed: 11/27/20 14:42 EST Vital Signs Date Time Vital Sign Value Performing Clinician Yanira gordon 11-21-2024 09:54-0500 Body temperature 97.81 [degF] Piyush Kunz DO Work Phone: [employer] 11-21-2024 09:53-0500 Body mass index (BMI) [Ratio] 18.02 kg/m2 Piyush Kunz DO Work Phone: [employer] 11-21-2024 09:53-0500 Body weight 47.63 kg Piyush Kunz DO Work Phone: [employer] 11-21-2024 09:53-0500 Diastolic blood pressure 66 mm[Hg] Piyush Kunz DO Work Phone: [employer] 11-21-2024 09:53-0500 Heart rate 66 /min Piyush Kunz DO Work Phone: [employer] 11-21-2024 09:53-0500 Respiratory rate 16 /min Piyush Kunz DO Work Phone: [employer] 11-21-2024 09:53-0500 SaO2% (BldA) [Mass fraction] 100 % Piyush Kunz DO Work Phone: [employer] 11-21-2024 09:53-0500 Systolic blood pressure 161 mm[Hg] Piyush Kunz DO Work Phone: [facility] 08-18-2021 10:25-0400 Body height 165.1 cm Saji Lewis MD Work Phone: [employer] Work Phone: 08-18-2021 10:25-0400 Body mass index (BMI) [Ratio] 16.64 kg/m2 Saji Lewis MD Work Phone: [employer] Work Phone: 08-18-2021 10:25-0400 Body temperature 98.6 [degF] Saji Lewis MD Work Phone: [employer] Work Phone: 08-18-2021 10:25-0400 Body weight 45.36 kg Saji Lewis MD Work Phone: [employer] Work Phone: 08-18-2021 10:25-0400 Diastolic blood pressure 91 mm[Hg] Saji Lewis MD Work Phone: [employer] Work Phone: 08-18-2021 10:25-0400 Heart rate 75 /min Saji Lewis MD Work Phone: [employer] Work Phone: 08-18-2021 10:25-0400 Respiratory rate 20 /min Saji Lewis MD Work Phone: [employer] Work Phone: 08-18-2021 10:25-0400 SaO2% (BldA) [Mass fraction] 99 % Saji Lewis MD Work Phone: [facility] Work Phone: 08-18-2021 10:25-0400 Systolic blood pressure 172 mm[Hg] Saji Lewis MD Work Phone: [facility] Work Phone: Encounters Encounter Date Encounter Type Care Provider Facility Start: 11-21-2024 End: 11-21-2024 Emergency department patient visit Piyush Kunz DO Work Phone: [facility] Emergency Department Comment on above: Laceration of right ring finger without foreign body without damage to nail, initial encounter (Primary Dx); Open displaced fracture of distal phalanx of finger of right hand Start: 03-17-2024 End: 03-17-2024 ambulatory OTTO HERNANDEZ [facility] Start: 03-04-2024 End: 03-05-2024 ambulatory [facility] Start: 03-04-2024 End: 03-04-2024 Subsequent hospital visit by physician Ace Quigley MD Work Phone: [facility] Comment on above: Colon cancer screeni ng; Primary hypertension Start: 04-22-2023 End: 04-23-2023 ambulatory JOANIE NEVILLEKEZIA [facility] Start: 04-22-2023 End: 04-22-2023 Subsequent hospital visit by physician [facility] Echo Room [facility] ECHO Comment on above: Chest pain, unspecif ied type; SOB (shortness of breath) Start: 03-25-2023 End: 03-25-2023 Emergency department patient visit [facility] Start: 08-18-2021 End: 08-18-2021 Emergency department patient visit Saji Lewis MD Work Phone: [facility] ED Comment on above: Dysfunction of right eustachian tube (Primary Dx) Procedures Date Procedure Procedure Detail Performing Clinician Start: 11-21-2024 Radex hand minimum 3 views Piyush Kunz DO Work Phone: Start: 11-21-2024 LACERATION REPAIR Patricia Brownlee Kunz DO Work Phone: Start: 03-17-2024 Colonoscopy Piyush foster DO Work Phone: Start: 03-04-2024 Ecg routine ecg w/le ast 12 lds w/i&r Ace Quigley MD Work Phone: Plan of Treatment Date Care Activity Detail Author Start: 11-21-2034 DTaP/Tdap/Td vaccine (2 - Td or Tdap) DTaP/Tdap/Td vaccine (2 - Td or Tdap) [facility] Start: 03-17-2034 Screening for malignant neoplasm of colon [facility] Start: 01-26-2027 Screening for malignant neoplasm of colon [facility] Start: 09-21-2026 Lipid panel Lipids [facility] Start: 01-10-2025 Depression Screen Depression Screen [facility] Start: 07-18-2024 COVID-19 Vaccine ( season) COVID-19 Vaccine () [facility] Start: 06-17-2024 Influenza vaccination [facility] Start: 04-05-2024 End: 04-05-2024 Patient encounter procedure 04/05/2024 9:30 AM EDT Office Visit [address] [id number] Otto Hernandez MD [address] [place] [address] [address] [place] [address] positive cologuard-left message regarding possibly direct schedule for colonoscopy [facility] Comment on above: positive cologuard-l eft message regarding possibly direct schedule for colonoscopy Start: 03-17-2024 End: 03-17-2024 Admission to same day surgery center 03/17/2024 10:15 AM EDT - 03/17/2024 10:47 AM EDT Surgery [facility] [address] [place] [address] Otto Hernandez MD [address] [place] [address] [address] [place] [address] COLONOSCOPY [facility] Comment on above: COLONOSCOPY Start: 03-17-2024 End: 03-17-2024 Colon ca scrn not hi rsk ind COLORECTAL CANCER SCREENING, NOT HIGH RISK Colon cancer screening 03/17/2024 10:15 AM EDT [facility] Start: 03-17-2024 Subsequent hospital visit by physician 03/17/2024 10:15 AM EDT Hospital Encounter [facility] [address] [place] [address] Otto Hernandez MD [address] [place] [address] [address] [place] [address] [facility] Start: 06-17-2023 Influenza vaccination Flu vaccine (S kendy Ended) [employer] Start: 09-18-2022 Depression Screen Depression Screen [employer] Start: 07-18-2021 Influenza vaccination Flu vaccine (# 1) [facility] Phone: Start: 11-13-2019 Screening for malignant neoplasm of breast Breast cancer screen [employer] Start: 2015 Screening for malignant neoplasm of lung Low dose CT lung screening [employer] Phone: Start: 2015 Shingles Vaccine (1 of 2) Shingles Vaccine (1 of 2) [facility] [employer] Start: 2010 Screening for malignant neoplasm of colon [facility] [employer] Start: 2005 Lipid panel Lipid screen [employer] Phone: Start: 1995 Screening for malignant neoplasm of cervix [employer] Phone: Start: 1986 Screening for malignant neoplasm of cervix Pap smear [employer] Phone: Start: 1984 DTaP/Tdap/Td vaccine (1 - Tdap) DTaP/Tdap/Td vaccine (1 - Tdap) [facility] [employer] Start: 1984 Hepatitis B vaccine (1 of 3 - 19+ 3-dose series) Hepatitis B vaccine (1 of 3 - 19+ 3-dose series) [facility] [employer] Start: 1983 Hepatitis C screening Hepatitis C justin fernandez [facility] [employer] Start: 1980 HIV screening HIV screen [facility] [employer] Start: 1977 COVID-19 Vaccine (1) COVID-19 Vaccin e (1) [facility] [employer] Phone: Start: 1971 Pneumococcal 0-64 years Vaccine (1 - PCV) Pneumococcal 0-64 years Vaccine (1 - PCV) [facility] [employer] Start: 1971 Pneumococcal 0-64 years Vaccine (1 of 2 - PCV) Pneumococcal 0-64 years Vaccine (1 of 2 - PCV) [facility] [employer] Start: 03-13-1966 COVID-19 Vaccine (#1) COVID-19 Vacci ne (#1) [facility] [employer] Start: 1965 Hepatitis B vaccine (1 of 3 - 3-dose series) Hepatitis B vaccine (1 of 3 - 3-dose series) [facility] [employer] Start: 1965 Hepatitis C screening Hepatitis C pr rebecca [facility] [employer] Phone: End: 04-22-2023 ECHO Complete 2D W Doppler W Color ECHO Complete 2D W Doppler W Color Echocardiography Routine Chest pain, unspecified type SOB (shortness of breath) 1 Occurrences starting 04/22/2023 until 04/22/2023 [facility] [employer] Work Phone: Comment on above: 1 Occurrences starti ng 04/22/2023 until 04/22/2023 EKG 12 lead EKG 12 lead ECG Routine Colon cancer screening Primary hypertension 03/04/2024 12:16 PM EDT [facility] End: 04-22-2023 Exercise stress test study CARDIAC STRESS TEST EXERCISE ONLY [facility] Routine Chest pain, unspecified type SOB (shortness of breath) 1 Occurrences starting 04/22/2023 until 04/22/2023 [employer] Work Phone: Comment on above: 1 Occurrences lioneli ng 04/22/2023 until 04/22/2023 Immunizations Immunization Date Immunization Notes Care Provider Yelitza solange 11-21-2024 tetanus toxoid, redu perlita diphtheria toxoid, and acellular pertussis vaccine, adsorbed Piyush Kunz DO [facility] P[facility] Date Payer Category Payer Unknown [id number] [id number] 2014 Unknown [id number] 1965 Unknown [id number] 2.16.8 [id number] 1965 Unknown [id number] 2.16.8 [id number] 1965 Unknown [id number] 2.16.8 [id number] 1965 Unknown [id number] 2.16.8 [id number] 1965 Unknown [id number] 2.16.8 [id number] 1965 Unknown [id number] [id number] Social History Date Type Detail Facility Start: 08-18-2021 End: 01-13-2024 Tobacco smoking status PAIS Current every day smoker [employer] History of tobacco use Cigarette Smoker [employer] Start: 08-18-2021 End: 03-17-2024 Cigarettes smoked current (pack per day) - Reported [employer] Start: 08-18-2021 End: 01-13-2024 Tobacco use and exposure Never used [employer] Start: 08-18-2021 End: 11-21-2024 Alcohol intake Current drinker of alcohol (finding) [employer] Work Phone: Start: 1965 Sex Assigned At [facility] Work Phone: Exposure to SARS-CoV -2 (event) Not sure [employer] Start: 03-25-2023 History SDOH Alcohol Frequency 2 [employer] Work Phone: Start: 09-18-2021 History SDOH Financial 5 [employer] Work Phone: Start: 09-18-2021 History SDOH Food Worry 1 [employer] Work Phone: Start: 03-25-2023 End: 03-17-2024 Alcohol Use Disorder Identification Test - Consumption [AUDIT-C] [employer] How often to you hav e a drink containing alcohol? Monthly or less [employer] Average Number of Drinks Not on file [employer] (I/We) worried wheth er (my/our) food would run out before (I/we) got money to buy more. Never true [employer] At any time in the p ast 12 months, were you homeless or living in senior care [including now]? No [employer] How often to you hav e a drink containing alcohol? Never [facility] Discharge instructions 11-21-2024 Discharge InstructionsAttachments Note Date & Type Note Facility 11-21-2024 Hospital Discharg e instructions Piyush Kunz DO - 11/21/2024 11:10 AM EST Please follow-up with occupational health tomorrow. Keep the area clean and dry. Keep the splint on for protection. Watch for signs of infection. Take the antibiotic as directed. Return to the emergency department if symptoms get worse. Stitches will need to be removed in the next 7 to 10 days upon follow-up with occupational health/orthopedics. The following attachments cannot be sent through Care Everywhere.Lacerations: Stitches (Icelandic)documented in this encounter [employer] [facility] Evaluation note Note Date & Type Note Facility Evaluation note Diagnosis Dysfunction of right eustachian tube- Primary Dysfunction of Eustachian tube documented in this encounter [employer]: Evaluation note Note Date & Type Note Facility Evaluation note Diagnosis Chest pain, unspecified type SOB (shortness of breath) Shortness of breath documented in this encounter [facility] [facility] Phone: Evaluation note Note Date & Type Note Facility Evaluation note Diagnosis Colon cancer screening Special screening for malignant neoplasms, colon Primary hypertension Unspecified essential hypertension Colon cancer screening Special screening for malignant neoplasms, colon documented in this encounter [facility] Evaluation note Note Date & Type Note Facility Evaluation note Diagnosis Laceration of right ring finger without foreign body without damage to nail, initial encounter- Primary Open displaced fracture of distal phalanx of finger of right hand documented in this encounter [facility] Discharge instructions Attachments Note Date & Type Note Facility Hospital Discharge instructions The following attachments cannot be sent through Care Everywhere.Eustachian Tube Problems (Icelandic)documented in this encounter [employer] [facility]: Summary Purpose Family History No Family History Records FoundNo Family History Records FoundNo Family History Records Found Advance Directives No Advanced Directives Records FoundDocuments on File Type Date Recorded 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 Healthcare Agents on File Name Relationship Healthcare Agent [facility] Communication Jackeline Alfaro Brother/Sister Primary Decision Maker Date Activated Date Inactivated Comments 03/17/2024 9:18 AM 03/17/2024 1:57 PM Healthcare Agents on File Name [facility] Healthcare Agent [facility] Communication Jackeline Alfaro Brother/Sister Primary Decision Maker Reason for Referral Specialty Diagnoses / Procedures Referred By Jimenez t Referred To Contact Cardiology Diagnoses Chest pain, unspecified type SOB (shortness of breath) R07.9 (ICD-10-CM) - Chest pain, unspecified type Procedures ECHO Complete 2D W Doppler W Color MA ECHO TTHRC R-T 2D W/WOM-MODE COMPL SPEC&COLR D [id number] - MA ECHO TTHRC R-T 2D W/WOM-MODE COMPL SPEC&COLR D Joanie Beasley MD [address] [place] [id number] Referral ID Status Reason Start Date Expiration Date Visits Re quested Visits Authorized [id number] Closed 04/16/2023 04/02/2024 1 1 Specialty Diagnoses / Procedures Referred By Contac t Referred To Contact Cardiology Diagnoses Chest pain, unspecified type SOB (shortness of breath) R07.9 (ICD-10-CM) - Chest pain, unspecified type Procedures CARDIAC STRESS TEST EXERCISE ONLY MA CV STRS TST XERS&/OR RX CONT ECG TRCG ONLY [id number] - MA CV STRS TST XERS&/OR RX CONT ECG TRCG ONLY Joanie Beasley MD [address] [place] [id number] Referral ID Status Reason Start Date Expiration Date V isits Requested Visits Authorized [id number] Not Required - RTA 04/03/2023 04/02/2024 1 1 Specialty Diagnoses / Procedures Referred By Contac t Referred To Contact Cardiology Diagnoses Colon cancer screening Primary hypertension Procedures EKG 12 lead Ace Quigley MD [address] [place] [address] Referral ID Status Reason Start Date Expiration Date Visits Re quested Visits Authorized [id number] Open 03/04/2024 03/04/2025 1 1 Additional Source Comments INFORMATION SOURCE (unrecogn ized section and content) DATE CREATED AUTHOR 12/12/2020 [employer] [facility] DATE CREATED AUTHOR AUTHOR'S ORGANIZ ATION 03/20/2024 Jayda [facility]ons [facility] DATE CREATED AUTHOR AUTHOR'S ORGANIZ ATION 11/28/2024 Jayda Herrera pitjuan carlos Reason for Visit (unrecogniz ed section and content) Reason Comments Ear Fullness left ear Specialty Diagnoses / Procedures Referred By Contac t Referred To Contact Cardiology Diagnoses Chest pain, unspecified type SOB (shortness of breath) R07.9 (ICD-10-CM) - Chest pain, unspecified type Procedures ECHO Complete 2D W Doppler W Color MA ECHO TTHRC R-T 2D W/WOM-MODE COMPL SPEC&COLR D [id number] - MA ECHO TTHRC R-T 2D W/WOM-MODE COMPL SPEC&COLR D Joanie Beasley MD [address] [place] [address] Referral ID Status Reason Start Date Expiration Date Visits Re quested Visits Authorized [id number] Closed 04/16/2023 04/02/2024 1 1 Specialty Diagnoses / Procedures Referred By Contac t Referred To Contact Cardiology Diagnoses Chest pain, unspecified type SOB (shortness of breath) R07.9 (ICD-10-CM) - Chest pain, unspecified type Procedures CARDIAC STRESS TEST EXERCISE ONLY MA CV STRS TST XERS&/OR RX CONT ECG TRCG ONLY [id number] - MA CV STRS TST XERS&/OR RX CONT ECG TRCG ONLY Joanie Beasley MD [address] [place] [address] Referral ID Status Reason Start Date Expiration Date V isits Requested Visits Authorized [id number] Not Required - RTA 04/03/2023 04/02/2024 1 1 Reason Comments Hand Pain Patient was at work and part of a car frame fell and hit right hand. Pain to right hand 4th digit with laceration. FROI Ordered Prescriptions (unrec ognized section and content) Prescription Sig Dispensed Refills Start Date End Da te pseudoephedrine-guaiFENe sin (MUCINEX D) 60-600 MG per extended release tablet 1 twice daily as needed for congestion 20 tablet 1 08/18/2021 Prescription Sig Dispensed Refills Start Date End Da te cephALEXin (KEFLEX) 500 MG capsule Take 1 capsule by mouth 3 times daily for 7 days 21 capsule 11/21/2024 11/28/2024 Care Teams (unrecognized sec tion and content) Rand Sewer Relationship Specialty Start Date End Date Ace Quigley MD [address] [place] [address] PCP - General Internal Medicine 09/18/21 Rand Sewer Relationship Specialty Start Date End Date Ace Quigley MD [address] [place] [address] PCP - General Internal Medicine 09/18/21 Rand Sewer Relationship Specialty Start Date End Date Ace Quigley [place] [address] PCP - General Internal Medicine 09/18/21 Scheduled Active and Recently Administ ered Medications (unrecognized section and content) Medication Order 11/19/2024 11/20/2024 11/21/2024 cephALEXin (KEFLEX) capsule 500 mg (COMPLETED) 500 mg, Oral, ONCE, 1 dose, On 11/21/24 at 1115, Antimicrobial Indications: Skin and Soft Tissue Infection 1122 (Given - Provid er: Kellie Modi RN) lidocaine PF 1 % injection 5 mL (COMPLETED) 5 mL, IntraDERmal, ONCE, 1 dose, On 11/21/24 at 1015 1122 (Given - Provid er: Kellie Modi RN - Comment: Administered by Dr. Kunz.) FOR RECORDS PERTAINING TO PATIENTS WHO ARE OR HAVE BEEN ENROLLED IN A CHEMICAL DEPENDENCY/SUBSTANCEABUSE PROGRAM, SOME INFORMATION MAY BE OMITTED. This clinical summary was aggregated from multiple sources. Caution should be exercised in using it in the provision of clinical care. This summary normalizes information from multiple sources, and as a consequence, information in this document may materially change the coding, format and clinical context of patient data. In addition, data may be omitted in some cases. CLINICAL DECISIONS SHOULD BE BASED ON THE PRIMARY CLINICAL RECORDS. [employer] provides no warranty or guarantee of the accuracy or completeness of information in this document.
== END 2024-12-27 08:19 | disposition home or self-care (01) ==
LOC: EC 08:18
PROVIDERS: Visit Provider Orthopaedic Surgery
DX: S62.654B Nondisplaced fracture of middle phalanx of right ring finger, initial encounter for open fracture (principal)
CPT/HCPCS: 73140

== ENCOUNTER 2025-01-24 08:26 | Outpatient (OUT) | payer OTHER, SELFPAY ==
--- NOTE | 2025-01-24 | XR_ITS ---
The [address] [address] Patient Name: SEVERO CARRASCO MRN: [id number] date: 1965 Sex: F Assigned Patient Location: Current Patient Location: Accession/Order Number: [id number] Exam Date: 01/24/2025 11:54 Report Date: 01/24/2025 11:57 At the request of: THU DONG MD Procedure: XR finger RT min 2V RIGHT FOURTH FINGER- 3 views CLINICAL HISTORY: Follow-up fracture at the distal phalanx of the right fourth finger. Continued pain. COMPARISON: 12/27/2024 AP, lateral and oblique views of the fourth finger were obtained. There is redemonstration of oblique fracture at the shaft of the distal phalanx of the fourth finger with mild comminution and similar mild displacement on the lateral view. There may be some resorption the fracture cleft. No significant developing callus formation is identified. No new fracture or dislocation is identified. There is mild soft tissue swelling at the finger distally. XR/XR finger RT min 2V IMPRESSION: STABLE FRACTURE AT THE DISTAL PHALANX OF THE FOURTH FINGER Impression dictated by: Nadine Levin M.D.01/24/2025 11:57 AM Dictation Location: [place] [address] Electronically authenticated by: [id number] Y Date: 01/24/2025 11:57
--- OUTSIDE RECORDS SUMMARY | 2025-01-24 08:44 | XMS_ITS | CCD ---
Author Organization [facility] Care Team Providers Care Flavorings Compounder Name Role Phone Unavailable Primary Care Provider UnavailAce Harrell MD Primary Care Provider Ace Quigley MD Primary Care Provider ACE QUIGLEY Primary Care Unavailable ENEDINA SMYTH Attending Unavailable OTTO HERNANDEZ Admitting Unavailable OTTO HERNANDEZ Attending Unavailable ACE QUIGLEY Primary Care Unavailable ACE QUIGLEY Primary Care Unavailable JOANIE BEASLEY Referring Unavailable JOANIE BEASLEY Referring Unavailable ACE QUIGLEY Primary Care Unavailable ACE QUIGLEY Referring Unavailable ACE QUIGLEY Primary Care Unavailable [...] poor wound healing, vascular damage and pain Henderson protocol: Procedure explained and questions answered to [...] tomorrow. Splint was also applied for protection. [facility] XR HAND RIGHT (MIN 3 VIEWS)o [...] Lai Russell MD 11/21/24 Final result Normal [facility] XR Hand - right 3 Viewson Soft tissue swelling and laceration at the 4th digit distally with a nondisplaced oblique fracture of the shaft of the 4th distal phalanx. A portion of the cortex dorsally is impacted. [facility] EXAMINATION: THREE XRAY VIEWS OF THE [...] is identified. The joint spaces are unremarkable. [facility] Lai Russell MD - 11/21/2024 EXAMINATION: [...] portion of the cortex dorsally is impacted. [facility] Radiology Study observation (narrative) [facility] XR Hand - right 3 ViewsOrder ed By: Lai Russell on 11-21-2024 [facility] Work Phone: Surgical Pathology Reporton 03-17-2024 Surgical Pathology Report (NOTE) Path Number: [id number] -- Diagnosis -- Sigmoid colon, polyp, biopsy: [...] Microscopic Description Microscopic examination performed. Processing Lab: [address] [address] Interpretation Performed at [address] [address] SURGICAL PATHOLOGY CONSULTATION Patient Name: UJDIT TOLLIVER Med Rec: [id number] [facility] [employer] [facility] ANATOMIC PATHOLOGY [address] [place] [phone] Normal [facility] CARDIAC STRESS TESTon 2022 CARDIAC STRESS TEST [facility] [address] [place] [address] CARDIAC STRESS TEST PATIENT NAME: JUDIT TOLLIVER : 1965 MED REC NO: [id number] ROOM: ACCOUNT NO: [id number] ADMIT DATE: 04/22/2023 PROVIDER: Jayme Beasley MD [...] to follow. JAYME BEASLEY MD [id number] Doc#: [id number] CC: Ace Sarkarlalito Normal [facility] APTTon 03-25-2023 aPTT Coag (Bld) [Time] 30.8 s Normal 23.9-33.8 [facility] Comment on above: Result Comment: IV Heparin Therapy Range: 62.0-94.0 Performed By: #### C DP, TROPI, PT, PTT, BMP, BNP #### [facility] [address] [place], [place] [id number] Operations Supervisor 2Nd Shift: Bunny Jenkins MD Basic Metabolic Profon 03-25 Anion gap [Moles/Vol] 10 mmol/L Normal 08-03 [facility] Comment on above: Performed By: #### C DP, TROPI, PT, PTT, BMP, BNP #### [facility] [address] [place], [place] [id number] Operations Supervisor 2Nd Shift: Bunny Jenkins MD BUN/CRE Ratio 11 Normal - [facility] Comment on above: Performed By: #### C DP, TROPI, PT, PTT, BMP, BNP #### [facility] [address] [place], [place] [phone] Operations Supervisor 2Nd Shift: Bunny Jenkins MD Calcium [Mass/Vol] 9.4 mg/dL Normal 8.6-10.4 [facility] Comment on above: Performed By: #### C DP, TROPI, PT, PTT, BMP, BNP #### [facility] [address] [place], [place] [id number] Operations Supervisor 2Nd Shift: Bunny Jenkins MD Chloride [Moles/Vol] 103 mmol/L Normal 98-107 [facility] Comment on above: Performed By: #### C DP, TROPI, PT, PTT, BMP, BNP #### [facility] [address] [place], [place] [phone] Operations Supervisor 2Nd Shift: Bunny Jenkins MD CO2 [Moles/Vol] 24 mmol/L Normal 20-31 [facility] Comment on above: Performed By: #### C DP, TROPI, PT, PTT, BMP, BNP #### [facility] [address] [place] [address] Operations Supervisor 2Nd Shift: Bunny Jenkins MD Creatinine [Mass/Vol] 0.83 mg/dL Normal 0.50-0.90 [facility] Comment on above: Performed By: #### C DP, TROPI, PT, PTT, BMP, BNP #### [facility] [address] [place] [address] Operations Supervisor 2Nd Shift: Bunny Jenkins MD GFR/1.73 sq M.predicted among non-blacks MDRD (S/P/Bld) [Vol rate/Area] mL/min/{1.73_m2} Normal >60 [facility] Comment on above: Result Comment: These results [...] DP, TROPI, PT, PTT, BMP, BNP #### [facility] [address] [place] [address] Operations Supervisor 2Nd Shift: Bunny Jenkins MD Glucose [Mass/Vol] 108 mg/dL High 70-99 [facility] Comment on above: Performed By: #### C DP, TROPI, PT, PTT, BMP, BNP #### [facility] [address] [place] [address] Operations Supervisor 2Nd Shift: Bunny Jenkins MD Potassium [Moles/Vol] 3.1 mmol/L Low 3.7-5.3 [facility] Comment on above: Performed By: #### C DP, TROPI, PT, PTT, BMP, BNP #### [facility] [address] [place] [address] Operations Supervisor 2Nd Shift: Bunny Jenkins MD Sodium [Moles/Vol] 137 mmol/L Normal 135-144 [facility] Comment on above: Performed By: #### C DP, TROPI, PT, PTT, BMP, BNP #### [facility] [address] [place] [address] Operations Supervisor 2Nd Shift: Bunny Jenkins MD Urea nitrogen [Mass/Vol] 9 mg/dL Normal 6-20 [facility] Comment on above: Performed By: #### C DP, TROPI, PT, PTT, BMP, BNP #### [facility] [address] [place] [phone] Operations Supervisor 2Nd Shift: Bunny Jenkins MD Brain Natri. Peptideon 03-25 Natriuretic peptide B (Bld) [Mass/Vol] 422 pg/mL High <300 [facility] Comment on above: Result Comment: An age-independent cutoff point of 300 pg/ml has a 98% negative predictive value excluding acute heart failure. Performed By: #### C DP, TROPI, PT, PTT, BMP, BNP #### [facility] [address] [place] [address] Operations Supervisor 2Nd Shift: Bunny Jenkins MD CBC with Diffon 03-25-2023 Abs. Basophil 0.00 k/uL Normal 0.0-0.2 [facility] Comment on above: Performed By: #### C DP, TROPI, PT, PTT, BMP, BNP #### [facility] [address] [place] [address] Operations Supervisor 2Nd Shift: Bunny Jenkins MD Abs.Neutrophil (Seg) 3.30 k/uL Normal 2.5-7.0 [facility] Comment on above: Performed By: #### C DP, TROPI, PT, PTT, BMP, BNP #### [facility] [address] [place] [address] Operations Supervisor 2Nd Shift: Bunny Jenkins MD Auto Diff Performed YES Normal [facility] Comment on above: Performed By: #### C DP, TROPI, PT, PTT, BMP, BNP #### [facility] [address] [place] [address] Operations Supervisor 2Nd Shift: Bunny Jenkins MD Basophils/100 WBC (Bld) 1 % Normal 0-2 [facility] Comment on above: Performed By: #### C DP, TROPI, PT, PTT, BMP, BNP #### [facility] [address] [place] [address] Operations Supervisor 2Nd Shift: Bunny Jenkins MD Eosinophils (Bld) [#/Vol] 0.10 10*3/uL Normal 0.0-0.4 [facility] Comment on above: Performed By: #### C DP, TROPI, PT, PTT, BMP, BNP #### [facility] [address] [place] [address] Operations Supervisor 2Nd Shift: Bunny Jenkins MD Eosinophils/100 WBC (Bld) 1 % Normal 0-5 [facility] Comment on above: Performed By: #### C DP, TROPI, PT, PTT, BMP, BNP #### [facility] [address] [place] [address] Operations Supervisor 2Nd Shift: Bunny Jenkins MD Erythrocyte distribution width (RBC) [Ratio] 13.0 % Normal 12.1-15.2 [facility] Comment on above: Performed By: #### C DP, TROPI, PT, PTT, BMP, BNP #### [facility] [address] [place] [address] Operations Supervisor 2Nd Shift: Bunny Jenkins MD Hematocrit (Bld) [Volume fraction] 32.2 % Low 36-46 [facility] Comment on above: Performed By: #### C DP, TROPI, PT, PTT, BMP, BNP #### [facility] [address] [place] [phone] Operations Supervisor 2Nd Shift: Bunny Jenkins MD Hemoglobin (Bld) [Mass/Vol] 10.9 g/dL Low 12.0-16.0 [facility] Comment on above: Performed By: #### C DP, TROPI, PT, PTT, BMP, BNP #### [facility] [address] [place] [address] Operations Supervisor 2Nd Shift: Bunny Jenkins MD Lymphocytes (Bld) [#/Vol] 3.10 10*3/uL Normal 1.0-4.8 [facility] Comment on above: Performed By: #### C DP, TROPI, PT, PTT, BMP, BNP #### [facility] [address] [place] [address] Operations Supervisor 2Nd Shift: Bunny Jenkins MD Lymphocytes/100 WBC (Bld) 45 % High 15-40 [facility] Comment on above: Performed By: #### C DP, TROPI, PT, PTT, BMP, BNP #### [facility] [address] [place] [address] Operations Supervisor 2Nd Shift: Bunny Jenkins MD MCH (RBC) [Entitic mass] 30.9 pg Normal 26-34 [facility] Comment on above: Performed By: #### C DP, TROPI, PT, PTT, BMP, BNP #### [facility] [address] [place] [address] Operations Supervisor 2Nd Shift: Bunny Jenkins MD MCHC (RBC) [Mass/Vol] 33.7 g/dL Normal 31-37 [facility] Comment on above: Performed By: #### C DP, TROPI, PT, PTT, BMP, BNP #### [facility] [address] [place] [address] Operations Supervisor 2Nd Shift: Bunny Jenkins MD MCV (RBC) [Entitic vol] 91.8 fL Normal 80-100 [facility] Comment on above: Performed By: #### C DP, TROPI, PT, PTT, BMP, BNP #### [facility] [address] [place] [address] Operations Supervisor 2Nd Shift: Bunny Jenkins MD Monocytes (Bld) [#/Vol] 0.40 10*3/uL Normal 0.0-1.0 [facility] Comment on above: Performed By: #### C DP, TROPI, PT, PTT, BMP, BNP #### [facility] [address] [place] [address] Operations Supervisor 2Nd Shift: Bunny Jenkins MD Monocytes/100 WBC (Bld) 6 % Normal 4-8 [facility] Comment on above: Performed By: #### C DP, TROPI, PT, PTT, BMP, BNP #### [facility] [address] [place] [address] Operations Supervisor 2Nd Shift: Bunny Jenkins MD Neutrophil (Seg) 47 % Normal 47-75 [facility] Comment on above: Performed By: #### C DP, TROPI, PT, PTT, BMP, BNP #### [facility] [address] [place] [address] Operations Supervisor 2Nd Shift: Bunny Jenkins MD Platelets (Bld) [#/Vol] 201 10*3/uL Normal 140-450 [facility] Comment on above: Performed By: #### C DP, TROPI, PT, PTT, BMP, BNP #### [facility] [address] [place], [place] [phone] Operations Supervisor 2Nd Shift: Bunny Jenkins MD RBC (Bld) [#/Vol] 3.51 10*6/uL Low 4.0-5.2 [facility] Comment on above: Performed By: #### C DP, TROPI, PT, PTT, BMP, BNP #### [facility] [address] [place], [place] [phone] Operations Supervisor 2Nd Shift: Bunny Jenkins MD WBC (Bld) [#/Vol] 7.0 10*3/uL Normal 3.5-11.0 [facility] Comment on above: Performed By: #### C DP, TROPI, PT, PTT, BMP, BNP #### [facility] [address] [place], [place] [phone] Operations Supervisor 2Nd Shift: Bunny Jenkins MD PTon 03-25-2023 INR Coag (PPP) [Relative time] 1.0 {INR} Normal [facility] Comment on above: Result Comment: Therapeutic Range: Moderate Anticoagulant Intensity: INR = 2.0-3.0 High Anticoagulant Intensity: INR = 2.5-3.5 Performed By: #### C DP, TROPI, PT, PTT, BMP, BNP #### [facility] [address] [place], [place] [phone] Operations Supervisor 2Nd Shift: Bunny Jenkins MD PT Coag (PPP) [Time] 13.4 s Normal 11.5-14.2 [facility] Comment on above: Performed By: #### C DP, TROPI, PT, PTT, BMP, BNP #### [facility] [address] [place], [place] [phone] Operations Supervisor 2Nd Shift: Bunny Jenkins MD Troponinon 03-25-2023 Troponin, High Sens <6 Normal 0-14 [facility] Comment on above: Result Comment: High Sensitivity Troponin values cannot be compared with other Troponin methodologies. Performed By: #### T ROPI #### [facility] [address] [place] [address] Operations Supervisor 2Nd Shift: Bunny Jenkins MD Troponin, High Sens 7 ng/L Normal 0-14 [facility] Comment on above: Result Comment: High Sensitivity Troponin values cannot be compared with other Troponin methodologies. Performed By: #### C DP, TROPI, PT, PTT, BMP, BNP #### [facility] [address] [place], [place] [phone] Operations Supervisor 2Nd Shift: Bunny Jenkins MD XR CHEST PORTABLEon 03-25-20 [...] Arian Leyva DO 03/25/23 Final result Normal [facility] Workers' Comp Officeon 12-12 Workers' Comp Office [id number] 121#1.00CD:127 Normal [facility] Progress Note-Physicianon Progress Note-Physician Patient: JUDIT TOLLIVER Age: 55 years Sex: Female : 1965 Associated Diagnoses: None Author: Sandra COTTON, Daniel Bruce Basic Information F IN: [id number]: Date of injury: 11/27/2020. Subjective 55-year-old female [...] Patient Stated Tobacco use / SNOMED CT [id number]- [id number] / Confirmed Added secondary to social history documentation. All Problems Calculus of gallbladder / SNOMED CT 86417TJV-560L-1110- Y10N-[id number] / Confirmed Cholecystitis / SNOMED CT I78NX643-V54F-9331- BFFC-NW9C383N16FS / Confirmed Tobacco use / SNOMED CT QZLV2204-2860-1W83- [id number] / Confirmed Added secondary to social history documentation. Histories Past Medical History: Active Calculus of gallbladder (69599NQN-823T-8095 -F46Y-L32395L03178) Cholecystitis (T00NW660-N69B-0286 -BFFC-PU5W130M20DV) Family History: No family history items have [...] . Impression and Plan Diagnosis: Sciatic pain (UDL53-JK M54.30, Working, Medical). 1. Sciatic pain: X-rays [...] return to occupational health as needed. Normal [facility] Comment on above: Result Comment: Elec tronically Signed By: Sandra COTTON, Daniel Bruce\.br\Date and Time Signed: 12/11/20 13:33 EST Workers' Comp Officeon 12-11 Workers' Comp Office [id number] 263#1.00CD:127 Normal [facility] Registrationon 12-07-2020 Registration [id number] 12#1.00CD:127 Normal [facility] XR Hip 2-3 Views Right + Pel [...] V. Transcribed by: JOSHUA Technologist: NAVID Normal [facility] XR Spine Lumbosacral Minimum 4 Viewson 12-06-2020 [...] MD, V. Transcribed by: JOSHUA Technologist: NAVID [facility] Coding Summary.on 12-05-2020 Coding Summary. CODING DATE: 12/05/2020 FINAL [facility] STATUS: Home (Routine DC) PAYOR: Worker's [...] Bruno CphT Date Saved: 12/05/2020 09:15 am [facility] Workers' Comp Officeon 12-05 Workers' Comp Office [id number] 264#1.00CD:127 [facility] Workers' Comp Office [id number] 69#1.00CD:127 [facility] Workers' Comp Office [id number] 56#1.00CD:127 [facility] Workers' Comp Office [id number] 70#1.00CD:127 Normal [facility] Consent for Treatmenton 11-17 Consent for Treatment [id number] B3#1.00CD:127 Normal [facility] Physician Orderon 12-04-2020 Physician Order [id number] 324#1.00CD:127 Normal [facility] Progress Note-Physicianon Progress Note-Physician Patient: JUDIT TOLLIVER Age: 55 years Sex: Female : 1965 Associated Diagnoses: None Author: Daniel Flores MD Basic Information F IN: [id number]. Date of injury 11/27/2020 Subjective This 55-year-old [...] Patient Stated Tobacco use / SNOMED CT [id number]- [id number] / Confirmed Added secondary to social history documentation. All Problems Calculus of gallbladder / SNOMED CT 64566AUN-774L-4188- N31A-R99738H83304 / Confirmed Cholecystitis / SNOMED CT [id number]-C63E-5604- BFFC-RM8T349R54GE / Confirmed Tobacco use / SNOMED CT NMVL7494-5026-3N27- A1U7-310400TA3DY6 / Confirmed Added secondary to social history documentation. Histories Past Medical History: Active Calculus of gallbladder (42803HNB-245U-4308 -N28C-J90315B21639) Cholecystitis (S91NC186-Q20E-1075 -BFFC-GI9D574Y29VD) Family History: No family history items have [...] pain. Impression and Plan Diagnosis: Sciatic pain (JFQ97-TE M54.30, Working, Medical). #1. Right-sided sciatica Pain [...] injury related to slight of frame. Normal [facility] Comment on above: Result Comment: Elec tronically Signed By: Sandra COTTON, Daniel Bruce\.br\Date and Time Signed: 12/04/20 14:02 EST Workers' Comp Officeon 11-28 Workers' Comp Office [id number] 6#1.00CD:127 Normal [facility] Workers' Comp Office [id number] 3#1.00CD:127 Normal [facility] Workers' Comp Office [id number] 0#1.00CD:127 Normal [facility] Consenton 11-27-2020 Consent [id number] 12#1.00CD:127 Normal [facility] Consent [id number] 17#1.00CD:127 Normal [facility] Progress Note-Physicianon Progress Note-Physician Patient: JUDIT TOLLIVER Age: 55 years Sex: Female : 1965 Associated Diagnoses: None Author: Daniel Flores MD Basic Information F IN: [id number] date of injury 11/27/2010 Subjective This 55-year-old [...] Patient Stated Tobacco use / SNOMED CT [id number]- M3C2-771437XD5TO8 / Confirmed Added secondary to social history documentation. All Problems Calculus of gallbladder / SNOMED CT 11682KCM-742M-7998- A25E-A20729O15286 / Confirmed Cholecystitis / SNOMED CT J77PU635-N56M-2028- BFFC-VB0S304F68AZ / Confirmed Tobacco use / SNOMED CT MUDC7894-2706-0W01- U2H1-485779NY4FR2 / Confirmed Added secondary to social history documentation. Histories Past Medical History: Active Calculus of gallbladder (72369CQB-679N-8135 -L10O-B34728A16266) Cholecystitis (Y26NK922-A58E-5819 -BFFC-HI5H286S64GX) Family History: No family history items have [...] either. Impression and Plan Diagnosis: Sciatic pain (UJV27-VG M54.30, Working, Medical). #1. Sciatica right-sided: Findings [...] the prednisone she may go to the shhu-aaf-ygzfovr nonsteroidal of choice. Advised patient difficult to write for restricted duty return to work since most of her activity involves standing and moving and not sitting or climbing. As such she is needs to move a little slower and take your stepping off that antifatigue mat. We will see her back in 1 week. Normal [facility] Comment on above: Result Comment: Elec tronically Signed By: Sandra COTTON, Daniel Bruce\.br\Date and Time Signed: 11/27/20 14:42 EST Vital Signs Date Time Vital Sign Value Performing Clinician Yanira gordon 11-21-2024 09:54-0500 Body temperature 97.81 [degF] Piyush Kunz DO Work Phone: [employer] 11-21-2024 09:53-0500 Body mass index (BMI) [Ratio] 18.02 kg/m2 Piyush Kunz DO Work Phone: [employer] 11-21-2024 09:53-0500 Body weight 47.63 kg Piyush Kunz DO Work Phone: [employer] 11-21-2024 09:53-0500 Diastolic blood pressure 66 mm[Hg] Piyush Kunz DO Work Phone: [employer] 11-21-2024 09:53-0500 Heart rate 66 /min Piyush Kunz DO Work Phone: [employer] 11-21-2024 09:53-0500 Respiratory rate 16 /min Piyush Kunz DO Work Phone: [employer] 11-21-2024 09:53-0500 SaO2% (BldA) [Mass fraction] 100 % Piyush Kunz DO Work Phone: [employer] 11-21-2024 09:53-0500 Systolic blood pressure 161 mm[Hg] Piyush Kunz DO Work Phone: [facility] [employer] 08-18-2021 10:25-0400 Body height 165.1 cm Saji Lewis MD Work Phone: [employer] Work Phone: 08-18-2021 10:25-0400 Body mass index (BMI) [Ratio] 16.64 kg/m2 Saji Lewis MD Work Phone: [employer] Work Phone: 08-18-2021 10:25-0400 Body temperature 98.6 [degF] Saji Lewis MD Work Phone: [employer] Work Phone: 08-18-2021 10:25-0400 Body weight 45.36 kg Saji Lewis MD Work Phone: [employer] Work Phone: 08-18-2021 10:25-0400 Diastolic blood pressure 91 mm[Hg] Saji Lewis MD Work Phone: [employer] Work Phone: 08-18-2021 10:25-0400 Heart rate 75 /min Saji Lewis MD Work Phone: [employer] Work Phone: 08-18-2021 10:25-0400 Respiratory rate 20 /min Saji Lewis MD Work Phone: [employer] Work Phone: 08-18-2021 10:25-0400 SaO2% (BldA) [Mass fraction] 99 % Saji Lewis MD Work Phone: [facility] Work Phone: 08-18-2021 10:25-0400 Systolic blood pressure 172 mm[Hg] Saji Lewis MD Work Phone: [facility] Work Phone: Encounters Encounter Date Encounter Type Care Provider Facility Start: 11-21-2024 End: 11-21-2024 Emergency department patient visit Piyush Kunz DO Work Phone: [facility] Emergency Department Comment on above: Laceration of right ring finger without foreign body without damage to nail, initial encounter (Primary Dx); Open displaced fracture of distal phalanx of finger of right hand Start: 03-17-2024 End: 03-17-2024 ambulatory OTTO HERNANDEZ [facility] Start: 03-04-2024 End: 03-05-2024 ambulatory [facility] Start: 03-04-2024 End: 03-04-2024 Subsequent hospital visit by physician Ace Quigley MD Work Phone: [facility] Comment on above: Colon cancer screeni ng; Primary hypertension Start: 04-22-2023 End: 04-23-2023 ambulatory JOANIE NEVILLEKEZIA [facility] Start: 04-22-2023 End: 04-22-2023 Subsequent hospital visit by physician [facility] Echo [facility] Comment on above: Chest pain, unspecif ied type; SOB (shortness of breath) Start: 03-25-2023 End: 03-25-2023 Emergency department patient visit [facility] Start: 08-18-2021 End: 08-18-2021 Emergency department patient visit Saji Lewis MD Work Phone: [facility] Comment on above: Dysfunction of right [...] DTaP/Tdap/Td vaccine (2 - Td or Tdap) [facility] Start: 03-17-2034 Screening for malignant neoplasm of colon [facility] Start: 01-26-2027 Screening for malignant neoplasm of colon [facility] Start: 09-21-2026 Lipid panel Lipids [facility] Start: 01-10-2025 Depression Screen Depression Screen [facility] Start: 07-18-2024 COVID-19 Vaccine ( season) COVID-19 Vaccine () [facility] Start: 06-17-2024 Influenza vaccination B [facility] Start: 04-05-2024 End: 04-05-2024 Patient encounter procedure 04/05/2024 9:30 AM EDT Office Visit [address] [phone] Otto Hernandez MD [address] [place] [address] [address] [place] [address] positive cologuard-left message regarding possibly direct schedule for colonoscopy [facility] Comment on above: positive cologuard-l eft message regarding possibly direct schedule for colonoscopy Start: 03-17-2024 End: 03-17-2024 Admission to same day surgery center 03/17/2024 10:15 AM EDT - 03/17/2024 10:47 AM EDT Surgery [facility] [address] [place] [address] Otto Hernandez MD [address] [place] [address] [address] [place] [address] COLONOSCOPY [facility] Comment on above: COLONOSCOPY Start: 03-17-2024 End: 03-17-2024 Colon ca scrn not hi rsk ind COLORECTAL CANCER SCREENING, NOT HIGH RISK Colon cancer screening 03/17/2024 10:15 AM EDT [facility] Start: 03-17-2024 Subsequent hospital visit by physician 03/17/2024 10:15 AM EDT Hospital Encounter [facility] [address] [place] [address] Otto Hernandez MD [address] [place] [address] [address] [place] [address] [facility] Start: 06-17-2023 Influenza vaccination Flu vaccine (S kendy Ended) [facility] Start: 09-18-2022 Depression Screen Depression Screen [facility] Start: 07-18-2021 Influenza vaccination Flu vaccine (# 1) [employer] Phone: Start: 11-13-2019 Screening for malignant neoplasm of breast Breast cancer screen [employer] Start: 2015 Screening for malignant neoplasm of lung Low dose CT lung screening [employer] Phone: Start: 2015 Shingles Vaccine (1 of 2) Shingles Vaccine (1 of 2) [facility] [employer] Start: 2010 Screening for malignant neoplasm of colon [facility] [employer] Start: 2005 Lipid panel Lipid screen [employer] Phone: Start: 1995 Screening for malignant neoplasm of cervix [employer] Phone: Start: 1986 Screening for malignant neoplasm of cervix Pap smear [employer] Phone: Start: 1984 DTaP/Tdap/Td vaccine (1 - Tdap) DTaP/Tdap/Td vaccine (1 - Tdap) [facility] [employer] Start: 1984 Hepatitis B vaccine (1 of 3 - 19+ 3-dose series) Hepatitis B vaccine (1 of 3 - 19+ 3-dose series) [facility] [place] Start: 1983 Hepatitis C screening Hepatitis C justin fernandez [facility] [employer] Start: 1980 HIV screening HIV screen [facility] [employer] Start: 1977 COVID-19 Vaccine (1) COVID-19 Vaccin e (1) [facility] [employer] Phone: Start: 1971 Pneumococcal 0-64 years Vaccine (1 - PCV) Pneumococcal 0-64 years Vaccine (1 - PCV) [facility] [employer] Start: 1971 Pneumococcal 0-64 years Vaccine (1 of 2 - PCV) Pneumococcal 0-64 years Vaccine (1 of 2 - PCV) [facility] [employer] Start: 03-13-1966 COVID-19 Vaccine (#1) COVID-19 Vacci ne (#1) [facility] [employer] Start: 1965 Hepatitis B vaccine (1 of 3 - 3-dose series) Hepatitis B vaccine (1 of 3 - 3-dose series) [facility] [employer] Start: 1965 Hepatitis C screening Hepatitis C nd rebecca [facility] [employer] Phone: End: 04-22-2023 ECHO Complete 2D W Doppler W Color ECHO Complete 2D W Doppler W Color Echocardiography Routine Chest pain, unspecified type SOB (shortness of breath) 1 Occurrences starting 04/22/2023 until 04/22/2023 [facility] [employer] Work Phone: Comment on above: 1 Occurrences starti ng 04/22/2023 until 04/22/2023 EKG 12 lead EKG 12 lead ECG Routine Colon cancer screening Primary hypertension 03/04/2024 12:16 PM EDT [facility] End: 04-22-2023 Exercise stress test study CARDIAC STRESS TEST EXERCISE ONLY [facility] Routine Chest pain, unspecified type SOB (shortness of breath) 1 Occurrences starting 04/22/2023 until 04/22/2023 [employer] Work Phone: Comment on above: 1 Occurrences lioneli ng 04/22/2023 until 04/22/2023 Immunizations Immunization Date Immunization Notes Care Provider Yelitza solange 11-21-2024 tetanus toxoid, redu perlita diphtheria toxoid, and acellular pertussis vaccine, adsorbed Piyush Kunz DO Work Phone: [facility] Payers Date Payer Category Payer Unknown [id number] [id number] [id number] 2014 Unknown [id number] 1965 Unknown [id number] 2.16.8 [id number] 1965 Unknown [id number] 2.16.8 [id number] 1965 Unknown [id number] 2.16.8 [id number] 1965 Unknown [id number] 2.16.8 [id number] 1965 Unknown [id number] 2.16.8 [id number] 1965 Unknown [id number] 2.16.8 [id number] Social History Date Type Detail Facility Start: 08-18-2021 End: 01-13-2024 Tobacco smoking status NJIS Current every day smoker [employer] History of tobacco use Cigarette Smoker [facility] Start: 08-18-2021 End: 03-17-2024 Cigarettes smoked current (pack per day) - Reported [employer] Start: 08-18-2021 End: 01-13-2024 Tobacco use and exposure Never used [employer] Start: 08-18-2021 End: 11-21-2024 Alcohol intake Current drinker of alcohol (finding) [employer] Work Phone: Start: 1965 [facility]igned At [facility] Work Phone: Exposure to SARS-CoV -2 (event) Not sure [employer] Start: 03-25-2023 History SDOH Alcohol Frequency 2 [employer] Work Phone: Start: 09-18-2021 History SDOH Financial 5 [employer] Work Phone: Start: 09-18-2021 History SDOH Food Worry 1 [employer] Work Phone: Start: 03-25-2023 End: 03-17-2024 Alcohol Use Disorder Identification Test - Consumption [AUDIT-C] [facility] How often to you hav e a drink containing alcohol? Monthly or less [employer] Average Number of Drinks Not on file [employer] (I/We) worried wheth er (my/our) food would run out before (I/we) got money to buy more. Never true [employer] At any time in the p ast 12 months, were you homeless or living in detention [including now]? No [employer] How often to you hav e a drink containing alcohol? Never [facility] [employer] [facility] Discharge instructions 11-21-2024 Discharge InstructionsAttachments Note [...] cannot be sent through Care Everywhere.Lacerations: Stitches (Yoruba)documented in this encounter [facility] [facility] Evaluation note Note Date & Type Note Facility Evaluation note Diagnosis Dysfunction of right eustachian tube- Primary Dysfunction of Eustachian tube documented in this encounter [employer] Phone: Evaluation note Note Date & Type Note Facility Evaluation note Diagnosis Chest pain, unspecified type SOB (shortness of breath) Shortness of breath documented in this encounter [facility] [employer] Phone: Evaluation note Note Date & Type Note Facility Evaluation note Diagnosis Colon cancer screening Special screening for malignant neoplasms, colon Primary hypertension Unspecified essential hypertension Colon cancer screening Special screening for malignant neoplasms, colon documented [facility] Evaluation note Note Date & Type Note Facility Evaluation note Diagnosis Laceration of right ring finger without foreign body without damage to nail, initial encounter- Primary Open displaced fracture of distal phalanx of finger of right hand documented in this encounter [facility] Hospital Discharge instructions Attachments Note Date & Type Note Facility Hospital Discharge instructions The following attachments cannot be sent through Care Everywhere.Eustachian Tube Problems (Yoruba)documented in this encounter [employer] Phone: Summary Purpose Family History No Family History Records FoundNo Family History Records FoundNo Family History Records Found Advance Directives No Advanced Directives Records FoundDocuments on File Type Date Recorded 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 Healthcare Agents on File Name Relationship Healthcare Agent [facility] Communication Jackeline Alfaro Brother/Sister Primary Decision Maker Date Activated Date Inactivated Comments 03/17/2024 9:18 AM 03/17/2024 1:57 PM Healthcare Agents on File Name [facility] Healthcare Agent [facility] Communication Jackeline Alfaro Brother/Sister Primary Decision Maker Reason for Referral Specialty Diagnoses / Procedures Referred By Jimenez t Referred To Contact Cardiology Diagnoses Chest pain, unspecified type SOB (shortness of breath) R07.9 (ICD-10-CM) - Chest pain, unspecified type Procedures ECHO Complete 2D W Doppler W Color LA ECHO TTHRC R-T 2D W/WOM-MODE COMPL SPEC&COLR D 60845 - LA ECHO TTHRC R-T 2D W/WOM-MODE COMPL SPEC&COLR D Joanie Beasley MD [address] [place] [id number] Referral ID Status Reason Start Date Expiration Date Visits Re quested Visits Authorized [id number] Closed 04/16/2023 04/02/2024 1 1 Specialty Diagnoses / Procedures Referred By Contac t Referred To Contact Cardiology Diagnoses Chest pain, unspecified type SOB (shortness of breath) R07.9 (ICD-10-CM) - Chest pain, unspecified type Procedures CARDIAC STRESS TEST EXERCISE ONLY LA CV STRS TST XERS&/OR RX CONT ECG TRCG ONLY 83301 - LA CV STRS TST XERS&/OR RX CONT ECG TRCG ONLY Joanie Beasley MD [address] [place] [id number] Referral ID Status Reason Start Date Expiration Date V isits Requested Visits Authorized [id number] Not Required - RTA 04/03/2023 04/02/2024 1 1 Specialty Diagnoses / Procedures Referred By Contac t Referred To Contact Cardiology Diagnoses Colon cancer screening Primary hypertension Procedures EKG 12 lead Ace Quigley MD [address] [place] [id number] Referral ID Status Reason Start Date Expiration Date Visits Re quested Visits Authorized [id number] Open 03/04/2024 03/04/2025 1 1 Additional Source Comments INFORMATION SOURCE (unrecogn ized section and content) DATE CREATED AUTHOR 12/12/2020 [employer] [facility] DATE CREATED AUTHOR AUTHOR'S ORGANIZ [...] ECHO Complete 2D W Doppler W Color LA ECHO TTHRC R-T 2D W/WOM-MODE COMPL SPEC&COLR D 58235 - LA ECHO TTHRC R-T 2D W/WOM-MODE COMPL SPEC&COLR D Joanei Beasley MD [address] [place] [address] Referral ID Status Reason Start Date Expiration Date Visits Re quested Visits Authorized [id number] Closed 04/16/2023 04/02/2024 1 1 Specialty Diagnoses / Procedures Referred By Contac t Referred To Contact Cardiology Diagnoses Chest pain, unspecified type SOB (shortness of breath) R07.9 (ICD-10-CM) - Chest pain, unspecified type Procedures CARDIAC STRESS TEST EXERCISE ONLY LA CV STRS TST XERS&/OR RX CONT ECG TRCG ONLY 68985 - LA CV STRS TST XERS&/OR RX CONT ECG TRCG ONLY Joanie Beasley MD [address] [place] [address] Referral ID Status Reason Start Date Expiration Date V isits Requested Visits Authorized [id number] Not Required - RTA 04/03/2023 04/02/2024 1 [...] Care Teams (unrecognized sec tion and content) [employer] Relationship Specialty Start Date End Date Ace Quigley MD [address] [place] [address] PCP - General Internal Medicine 09/18/21 [employer] Relationship Specialty Start Date End Date Ace Quigley MD [address] [place] [phone] PCP - General Internal Medicine 09/18/21 [employer] Relationship Specialty Start Date End Date [place] [address] PCP - General Internal Medicine 09/18/21 Scheduled [...] BE BASED ON THE PRIMARY CLINICAL RECORDS. [email or web address] provides no warranty or guarantee of the accuracy or completeness of information in this document.
== END 2025-01-24 08:27 | disposition home or self-care (01) ==
LOC: EC 08:26
PROVIDERS: Visit Provider Orthopaedic Surgery
DX: S62.654D Nondisplaced fracture of middle phalanx of right ring finger, subsequent encounter for fracture with routine healing (principal)
CPT/HCPCS: 73140

== ENCOUNTER 2025-02-28 07:59 | Outpatient (OUT) | payer OTHER, SELFPAY ==
--- NOTE | 2025-02-28 | XR_ITS ---
The [address] [address] Patient Name: SEVERO CARRASCO MRN: [id number] date: 1965 Sex: F Assigned Patient Location: Current Patient Location: Accession/Order Number: [id number] Exam Date: 02/28/2025 10:00 Report Date: 02/28/2025 10:06 At the request of: THU DONG MD Procedure: XR finger RT min 2V RIGHT FOURTH FINGER- 3 views CLINICAL HISTORY: Follow-up fracture of distal phalanx of right ring finger COMPARISON: 01/24/2025 AP, oblique and lateral views of the fourth finger were obtained. A similar fracture is seen at the shaft of the distal phalanx of the fourth finger. There is minor overriding and subtle apex volar angulation on the lateral view. No new fracture or dislocation is identified. No soft tissue swelling is seen. XR/XR finger RT min 2V IMPRESSION: SIMILAR FRACTURE AT THE DISTAL PHALANX OF THE FOURTH FINGER. Impression dictated by: Nadine Levin M.D.02/28/2025 10:06 AM Dictation Location: [place] [address] Electronically authenticated by: [id number] Y Date: 02/28/2025 10:06
--- OUTSIDE RECORDS SUMMARY | 2025-02-28 08:02 | XMS_ITS | CCD ---
Author Organization [facility] Care Team Providers Care Senior Java Web Developer Name Role Phone Unavailable Primary Care Provider [...] poor wound healing, vascular damage and pain [place] protocol: Procedure explained and questions answered to [...] Splint was also applied for protection. [facility] XR HAND RIGHT (MIN 3 VIEWS)o [...] Lai Russell MD 11/21/24 Final result Normal [facility] XR Hand - right 3 Viewson Soft tissue swelling and laceration at the 4th digit distally with a nondisplaced oblique fracture of the shaft of the 4th distal phalanx. A portion of the cortex dorsally is impacted. [facility] EXAMINATION: THREE XRAY VIEWS [...] is identified. The joint spaces are unremarkable. [facility] Lai Russell MD - [...] portion of the cortex dorsally is impacted. [facility] Radiology Study observation (narrative) [facility] XR Hand - right 3 ViewsOrder ed By: Lai Russell on 11-21-2024 [facility] [employer] Work Phone: Surgical Pathology Reporton 03-17-2024 Surgical Pathology Report (NOTE) Path Number: [id number] -- Diagnosis -- Sigmoid colon, polyp, biopsy: [...] Microscopic Description Microscopic examination performed. Processing Lab: [address] [address] Interpretation Performed at [address] [address] SURGICAL PATHOLOGY CONSULTATION Patient Name: JUDIT TOLLIVER Med Rec: [id number] [facility] [employer] [facility] ANATOMIC PATHOLOGY [address] [place] [id number] Normal [facility] CARDIAC STRESS TESTon 2022 CARDIAC STRESS TEST [facility] [address] [place] [address] CARDIAC STRESS TEST PATIENT NAME: JUDIT TOLLIVER : 1965 MED REC NO: [id number] ROOM: ACCOUNT NO: [id number] ADMIT DATE: 04/22/2023 PROVIDER: Jayme Beasley MD [...] to follow. JAYME BEASLEY MD [id number] Doc#: [id number] CC: Ace Sarkarlalito Normal [facility] APTTon 03-25-2023 aPTT Coag (Bld) [Time] 30.8 s Normal 23.9-33.8 [facility] Comment on above: Result Comment: IV Heparin Therapy Range: 62.0-94.0 Performed By: #### C DP, TROPI, PT, PTT, BMP, BNP #### [facility] [address] [place], [place] [id number] [employer] Heel Stiffener: Bunny Jenkins MD Basic Metabolic Profon 03-25 Anion gap [Moles/Vol] 10 mmol/L Normal 08-03 [facility] Comment on above: Performed By: #### C DP, TROPI, PT, PTT, BMP, BNP #### [facility] [address] [place], [place] [id number] [employer] Stiffener: Bunny Jenkins MD BUN/CRE Ratio 11 Normal - [facility] Comment on above: Performed By: #### C DP, TROPI, PT, PTT, BMP, BNP #### [facility] [address] [place], [place] [id number] [employer] Stiffener: Bunny Jenkins MD Calcium [Mass/Vol] 9.4 mg/dL Normal 8.6-10.4 [facility] Comment on above: Performed By: #### C DP, TROPI, PT, PTT, BMP, BNP #### [facility] [address] [place], [place] [id number] [employer] Stiffener: Bunny Jenkins MD Chloride [Moles/Vol] 103 mmol/L Normal 98-107 [facility] Comment on above: Performed By: #### C DP, TROPI, PT, PTT, BMP, BNP #### [facility] [address] [place], [place] [id number] [employer] Stiffener: Bunny Jenkins MD CO2 [Moles/Vol] 24 mmol/L Normal 20-31 [facility] Comment on above: Performed By: #### C DP, TROPI, PT, PTT, BMP, BNP #### [facility] [address] [place] [address] [employer] Heel Stiffener: uBnny Jenkins MD Creatinine [Mass/Vol] 0.83 mg/dL Normal 0.50-0.90 [facility] Comment on above: Performed By: #### C DP, TROPI, PT, PTT, BMP, BNP #### [facility] [address] [place] [address] [employer] Heel Stiffener: Bunny Jenkins MD GFR/1.73 sq M.predicted among non-blacks MDRD (S/P/Bld) [Vol rate/Area] mL/min/{1.73_m2} Normal >60 [facility] Comment on above: Result Comment: These [...] DP, TROPI, PT, PTT, BMP, BNP #### [facility] [address] [place] [address] [employer] Stiffener: Bunny Jenkins MD Glucose [Mass/Vol] 108 mg/dL High 70-99 [facility] Comment on above: Performed By: #### C DP, TROPI, PT, PTT, BMP, BNP #### [facility] [address] [place] [address] [employer] He[employer] Stiffener: Bunny Jenkins MD Potassium [Moles/Vol] 3.1 mmol/L Low 3.7-5.3 [facility] Comment on above: Performed By: #### C DP, TROPI, PT, PTT, BMP, BNP #### [facility] [address] [place] [address] [employer] Stiffener: Bunny Jenkins MD Sodium [Moles/Vol] 137 mmol/L Normal 135-144 [facility] Comment on above: Performed By: #### C DP, TROPI, PT, PTT, BMP, BNP #### [facility] [address] [place] [address] [employer] He[employer] Stiffener: Bunny Jenkins MD Urea nitrogen [Mass/Vol] 9 mg/dL Normal 6-20 [facility] Comment on above: Performed By: #### C DP, TROPI, PT, PTT, BMP, BNP #### [facility] [address] [place] [id number] [employer] Stiffener: Bunny Jenkins MD Brain Natri. Peptideon 03-25 Natriuretic peptide B (Bld) [Mass/Vol] 422 pg/mL High <300 [facility] Comment on above: Result Comment: An age-independent cutoff point of 300 pg/ml has a 98% negative predictive value excluding acute heart failure. Performed By: #### C DP, TROPI, PT, PTT, BMP, BNP #### [facility] [address] [place] [address] [employer] He[employer] Stiffener: Bunny Jenkins MD CBC with Diffon 03-25-2023 Abs. Basophil 0.00 k/uL Normal 0.0-0.2 [facility] Comment on above: Performed By: #### C DP, TROPI, PT, PTT, BMP, BNP #### [facility] [address] [place] [address] [employer] Heel Stiffener: Bunny Jenkins MD Abs.Neutrophil (Seg) 3.30 k/uL Normal 2.5-7.0 [facility] Comment on above: Performed By: #### C DP, TROPI, PT, PTT, BMP, BNP #### [facility] [address] [place] [address] [employer] Heel Stiffener: Bunny Jenkins MD Auto Diff Performed YES Normal [facility] Comment on above: Performed By: #### C DP, TROPI, PT, PTT, BMP, BNP #### [facility] [address] [place] [address] [employer] Heel Stiffener: Bunny Jenkins MD Basophils/100 WBC (Bld) 1 % Normal 0-2 [facility] Comment on above: Performed By: #### C DP, TROPI, PT, PTT, BMP, BNP #### [facility] [address] [place] [address] [employer] Heel Stiffener: Bunny Jenkins MD Eosinophils (Bld) [#/Vol] 0.10 10*3/uL Normal 0.0-0.4 [facility] Comment on above: Performed By: #### C DP, TROPI, PT, PTT, BMP, BNP #### [facility] [address] [place] [address] [employer] Heel Stiffener: Bunny Jenkins MD Eosinophils/100 WBC (Bld) 1 % Normal 0-5 [facility] Comment on above: Performed By: #### C DP, TROPI, PT, PTT, BMP, BNP #### [facility] [address] [place] [address] [employer] He[employer] Stiffener: Bunny Jenkins MD Erythrocyte distribution width (RBC) [Ratio] 13.0 % Normal 12.1-15.2 [facility] Comment on above: Performed By: #### C DP, TROPI, PT, PTT, BMP, BNP #### [facility] [address] [place] [address] [employer] He[employer] Stiffener: Bunny Jenkins MD Hematocrit (Bld) [Volume fraction] 32.2 % Low 36-46 [facility] Comment on above: Performed By: #### C DP, TROPI, PT, PTT, BMP, BNP #### [facility] [address] [place] [id number] [employer] Stiffener: Bunny Jenkins MD Hemoglobin (Bld) [Mass/Vol] 10.9 g/dL Low 12.0-16.0 [facility] Comment on above: Performed By: #### C DP, TROPI, PT, PTT, BMP, BNP #### [facility] [address] [place] [address] [employer] He[employer] Stiffener: Bunny Jenkins MD Lymphocytes (Bld) [#/Vol] 3.10 10*3/uL Normal 1.0-4.8 [facility] Comment on above: Performed By: #### C DP, TROPI, PT, PTT, BMP, BNP #### [facility] [address] [place] [address] [employer] He[employer] Stiffener: Bunny Jenkins MD Lymphocytes/100 WBC (Bld) 45 % High 15-40 [facility] Comment on above: Performed By: #### C DP, TROPI, PT, PTT, BMP, BNP #### [facility] [address] [place] [address] [employer] He[employer] Stiffener: Bunny Jenkins MD MCH (RBC) [Entitic mass] 30.9 pg Normal 26-34 [facility] Comment on above: Performed By: #### C DP, TROPI, PT, PTT, BMP, BNP #### [facility] [address] [place] [address] [employer] Heel Stiffener: Bunny Jenkins MD MCHC (RBC) [Mass/Vol] 33.7 g/dL Normal 31-37 [facility] Comment on above: Performed By: #### C DP, TROPI, PT, PTT, BMP, BNP #### [facility] [address] [place] [address] [employer] Heel Stiffener: Bunny Jenkins MD MCV (RBC) [Entitic vol] 91.8 fL Normal 80-100 [facility] Comment on above: Performed By: #### C DP, TROPI, PT, PTT, BMP, BNP #### [facility] [address] [place] [address] [employer] Heel Stiffener: Bunny Jenkins MD Monocytes (Bld) [#/Vol] 0.40 10*3/uL Normal 0.0-1.0 [facility] Comment on above: Performed By: #### C DP, TROPI, PT, PTT, BMP, BNP #### [facility] [address] [place] [address] [employer] He[employer] Stiffener: Bunny Jenkins MD Monocytes/100 WBC (Bld) 6 % Normal 4-8 [facility] Comment on above: Performed By: #### C DP, TROPI, PT, PTT, BMP, BNP #### [facility] [address] [place] [address] [employer] He[employer] Stiffener: Bunny Jenkins MD Neutrophil (Seg) 47 % Normal 47-75 [facility] Comment on above: Performed By: #### C DP, TROPI, PT, PTT, BMP, BNP #### [facility] [address] [place] [address] [employer] Heel Stiffener: Bunny Jenkins MD Platelets (Bld) [#/Vol] 201 10*3/uL Normal 140-450 [facility] Comment on above: Performed By: #### C DP, TROPI, PT, PTT, BMP, BNP #### [facility] [address] [place], [place] [id number] [employer] Stiffener: Bunny eJnkins MD RBC (Bld) [#/Vol] 3.51 10*6/uL Low 4.0-5.2 [facility] Comment on above: Performed By: #### C DP, TROPI, PT, PTT, BMP, BNP #### [facility] [address] [place], [place] [id number] [employer] He[employer] Stiffener: Bunny Jenkins MD WBC (Bld) [#/Vol] 7.0 10*3/uL Normal 3.5-11.0 [facility] Comment on above: Performed By: #### C DP, TROPI, PT, PTT, BMP, BNP #### [facility] [address] [place], [place] [id number] [employer] Stiffener: Bunny Jenkins MD PTon 03-25-2023 INR Coag (PPP) [Relative time] 1.0 {INR} Normal [facility] Comment on above: Result Comment: Therapeutic Range: Moderate Anticoagulant Intensity: INR = 2.0-3.0 High Anticoagulant Intensity: INR = 2.5-3.5 Performed By: #### C DP, TROPI, PT, PTT, BMP, BNP #### [facility] [address] [place], [place] [id number] [employer] Stiffener: Bunny Jenkins MD PT Coag (PPP) [Time] 13.4 s Normal 11.5-14.2 [facility] Comment on above: Performed By: #### C DP, TROPI, PT, PTT, BMP, BNP #### [facility] [address] [place], [place] [id number] [employer] Stiffener: Bunny Jenkins MD Troponinon 03-25-2023 Troponin, High Sens <6 Normal 0-14 [facility] Comment on above: Result Comment: High Sensitivity Troponin values cannot be compared with other Troponin methodologies. Performed By: #### T ROPI #### [facility] [address] [place] [address] Insole [employer] Heel Stiffener: Bunny Jenkins MD Troponin, High Sens 7 ng/L Normal 0-14 [facility] Comment on above: Result Comment: High Sensitivity Troponin values cannot be compared with other Troponin methodologies. Performed By: #### C DP, TROPI, PT, PTT, BMP, BNP #### [facility] [address] [place], [place] [id number] [employer] Heel Stiffener: Bunny Jenkins MD XR CHEST PORTABLEon 03-25-20 [...] Arian Leyva DO 03/25/23 Final result Normal [facility] Workers' Comp Officeon 12-12 Workers' Comp Office [id number] 121#1.00CD:127 Normal [facility] Progress Note-Physicianon Progress Note-Physician Patient: JUDIT TOLLIVER Age: 55 years Sex: Female : 1965 Associated Diagnoses: None Author: Sandra COTTON, Daniel Bruce Basic Information F IN: [id number]: Date of injury: 11/27/2020. Subjective 55-year-old female [...] Patient Stated Tobacco use / SNOMED CT [id number]- [id number] / Confirmed Added secondary to social history documentation. All Problems Calculus of gallbladder / SNOMED CT 88482CHG-[id number]-2992- [id number] / Confirmed Cholecystitis / SNOMED CT [id number]-L81K-6029- BFFC-[id number] / Confirmed Tobacco use / SNOMED CT [id number]- [id number] / Confirmed Added secondary to social history documentation. Histories Past Medical History: Active Calculus of gallbladder (08084QIF-908E-4237 -[id number]-[id number]) Cholecystitis (L51VZ052-J91F-3642 -BFFC-QD0F840Z95PM) Family History: No family history items have [...] . Impression and Plan Diagnosis: Sciatic pain (PFF75-FZ M54.30, Working, Medical). 1. Sciatic pain: X-rays [...] return to occupational health as needed. Normal [facility] Comment on above: Result Comment: Elec tronically Signed By: Sandra COTTON, Daniel Bruce\.br\Date and Time Signed: 12/11/20 13:33 EST Workers' Comp Officeon 12-11 Workers' Comp Office [id number] 263#1.00CD:127 Normal [facility] Registrationon 12-07-2020 Registration [id number] 12#1.00CD:127 Normal [facility] XR Hip 2-3 Views Right + [...] V. Transcribed by: JOSHUA Technologist: NAVID Normal [facility] XR Spine Lumbosacral Minimum 4 Viewson [...] MD, V. Transcribed by: JOSHUA Technologist: NAVID [facility] Coding Summary.on 12-05-2020 Coding Summary. CODING DATE: 12/05/2020 FINAL [facility] STATUS: Home (Routine DC) PAYOR: Worker's [...] Bruno CphT Date Saved: 12/05/2020 09:15 am [facility] Workers' Comp Officeon 12-05 Workers' Comp Office [id number] 264#1.00CD:127 [facility] Workers' Comp Office [id number] 69#1.00CD:127 [facility] Workers' Comp Office [id number] 56#1.00CD:127 [facility] Workers' Comp Office [id number] 70#1.00CD:127 Normal [facility] Consent for Treatmenton 11-17 Consent for Treatment [id number] B3#1.00CD:127 Normal [facility] Physician Orderon 12-04-2020 Physician Order [id number] 324#1.00CD:127 Normal [facility] Progress Note-Physicianon Progress Note-Physician Patient: JUDIT TOLLIVER Age: 55 years Sex: Female : 1965 Associated Diagnoses: None Author: Daniel Flores MD Basic Information F IN: [id number]. Date of injury 11/27/2020 Subjective This 55-year-old [...] Patient Stated Tobacco use / SNOMED CT [id number]- [id number] / Confirmed Added secondary to social history documentation. All Problems Calculus of gallbladder / SNOMED CT 87688ZNP-282E-6111- D43O-[id number] / Confirmed Cholecystitis / SNOMED CT C30GL195-H72F-4338- BFFC-VF6J354E60DD / Confirmed Tobacco use / SNOMED CT LFDN5113-6820-2F00- T1B9-265679WO1SL2 / Confirmed Added secondary to social history documentation. Histories Past Medical History: Active Calculus of gallbladder (08626XGV-537K-1064 -D26A-[id number]) Cholecystitis (O79QJ118-Q28L-6133 -BFFC-VI1W534J15IX) Family History: No family history items have [...] pain. Impression and Plan Diagnosis: Sciatic pain (FGX19-FP M54.30, Working, Medical). #1. Right-sided sciatica Pain [...] injury related to slight of frame. Normal [facility] Comment on above: Result Comment: Elec tronically Signed By: Sandra COTTON, Daniel Bruce\.br\Date and Time Signed: 12/04/20 14:02 EST Workers' Comp Officeon 11-28 Workers' Comp Office [id number] 6#1.00CD:127 Normal [facility] Workers' Comp Office [id number] 3#1.00CD:127 Normal [facility] Workers' Comp Office [id number] 0#1.00CD:127 Normal [facility] Consenton 11-27-2020 Consent [id number] 12#1.00CD:127 Normal [facility] Consent [id number] 17#1.00CD:127 Normal [facility] Progress Note-Physicianon Progress Note-Physician Patient: JUDIT TOLLIVER Age: 55 years Sex: Female : 1965 Associated Diagnoses: None Author: Daniel Flores MD Basic Information F IN: [id number] date of injury 11/27/2010 Subjective This 55-year-old [...] Patient Stated Tobacco use / SNOMED CT TPCV1981-1678-2Q70- M0O7-093746FX9XV6 / Confirmed Added secondary to social history documentation. All Problems Calculus of gallbladder / SNOMED CT 30067AIW-098V-4485- L67D-[id number] / Confirmed Cholecystitis / SNOMED CT P53IL538-G29V-5281- BFFC-OS4W560A07KD / Confirmed Tobacco use / SNOMED CT TWPI7762-3950-1J91- [id number] / Confirmed Added secondary to social history documentation. Histories Past Medical History: Active Calculus of gallbladder (10991YWL-589Q-1591 -S91D-L41556F94751) Cholecystitis (E20NY462-A86M-1485 -BFFC-SP5G389W68UX) Family History: No family history items have [...] either. Impression and Plan Diagnosis: Sciatic pain (ZUO56-KA M54.30, Working, Medical). #1. Sciatica right-sided: Findings [...] the prednisone she may go to the fadn-dsl-crvhavt nonsteroidal of choice. Advised patient difficult to write for restricted duty return to work since most of her activity involves standing and moving and not sitting or climbing. As such she is needs to move a little slower and take your stepping off that antifatigue mat. We will see her back in 1 week. Normal [facility] Comment on above: Result Comment: Elec tronically Signed By: Sandra COTTON, Daniel Bruce\.br\Date and Time Signed: 11/27/20 14:42 EST Vital Signs Date Time Vital Sign Value Performing Clinician Yanira gordon 11-21-2024 09:54-0500 Body temperature 97.81 [degF] Piyush Kunz DO Work Phone: [employer] 11-21-2024 09:53-0500 Body mass index (BMI) [Ratio] 18.02 kg/m2 Piyush Kunz DO Work Phone: [employer] 11-21-2024 09:53-0500 Body weight 47.63 kg Piyush Kunz DO Work Phone: [employer] 11-21-2024 09:53-0500 Diastolic blood pressure 66 mm[Hg] Piyush Kunz DO Work Phone: [employer] 11-21-2024 09:53-0500 Heart rate 66 /min Piyush Kunz DO Work Phone: [employer] 11-21-2024 09:53-0500 Respiratory rate 16 /min Piyush Kunz DO Work Phone: [employer] 11-21-2024 09:53-0500 SaO2% (BldA) [Mass fraction] 100 % Piyush Kunz DO Work Phone: [employer] 11-21-2024 09:53-0500 Systolic blood pressure 161 mm[Hg] Piyush Kunz DO Work Phone: [facility] [employer] 08-18-2021 10:25-0400 Body height 165.1 cm Saji Lewis MD Work Phone: [employer] Work Phone: 08-18-2021 10:25-0400 Body mass index (BMI) [Ratio] 16.64 kg/m2 Saji Lewis MD Work Phone: [employer] Work Phone: 08-18-2021 10:25-0400 Body temperature 98.6 [degF] Saji Lewis MD Work Phone: [employer] Work Phone: 08-18-2021 10:25-0400 Body weight 45.36 kg Saji Lewis MD Work Phone: [employer] Work Phone: 08-18-2021 10:25-0400 Diastolic blood pressure 91 mm[Hg] Saji Lewis MD Work Phone: [employer] Work Phone: 08-18-2021 10:25-0400 Heart rate 75 /min Saji Lewis MD Work Phone: [employer] Work Phone: 08-18-2021 10:25-0400 Respiratory rate 20 /min Saji Lewis MD Work Phone: [employer] Work Phone: 08-18-2021 10:25-0400 SaO2% (BldA) [Mass fraction] 99 % Saji Lewis MD Work Phone: [facility] Work Phone: 08-18-2021 10:25-0400 Systolic blood pressure 172 mm[Hg] Saji Lewis MD Work Phone: [facility] Work Phone: Encounters Encounter Date Encounter Type Care Provider Facility Start: 11-21-2024 End: 11-21-2024 Emergency department patient visit Piyush Kunz DO Work Phone: [facility] Emergency Department Comment on above: Laceration of right ring finger without foreign body without damage to nail, initial encounter (Primary Dx); Open displaced fracture of distal phalanx of finger of right hand Start: 03-17-2024 End: 03-17-2024 ambulatory OTTO HERNANDEZ [facility] Start: 03-04-2024 End: 03-05-2024 ambulatory [facility] Start: 03-04-2024 End: 03-04-2024 Subsequent hospital visit by physician Ace Quigley MD Work Phone: [facility] Comment on above: Colon cancer screeni ng; Primary hypertension Start: 04-22-2023 End: 04-23-2023 ambulatory JOANIE NEVILLEKEZIA [facility] Start: 04-22-2023 End: 04-22-2023 Subsequent hospital visit by physician [facility] Echo Room [facility] ECHO Comment on above: Chest pain, unspecif ied type; SOB (shortness of breath) Start: 03-25-2023 End: 03-25-2023 Emergency department patient visit [facility] Start: 08-18-2021 End: 08-18-2021 Emergency department patient visit Saji Lewis MD Work Phone: [facility] ED Comment on above: Dysfunction of [...] DTaP/Tdap/Td vaccine (2 - Td or Tdap) [facility] Start: 03-17-2034 Screening for malignant neoplasm of colon [facility] Start: 01-26-2027 Screening for malignant neoplasm of colon [facility] Start: 09-21-2026 Lipid panel Lipids [facility] Start: 01-10-2025 Depression Screen Depression Screen [facility] Start: 07-18-2024 COVID-19 Vaccine ( season) COVID-19 Vaccine () [facility] Start: 06-17-2024 Influenza vaccination B [facility] Start: 04-05-2024 End: 04-05-2024 Patient encounter procedure 04/05/2024 9:30 AM EDT Office Visit [address] [phone] Otto Hernandez MD [address] [place] [address] [address] [place] [address] positive cologuard-left message regarding possibly direct schedule for colonoscopy [facility] Comment on above: positive cologuard-l eft message regarding possibly direct schedule for colonoscopy Start: 03-17-2024 End: 03-17-2024 Admission to same day surgery center 03/17/2024 10:15 AM EDT - 03/17/2024 10:47 AM EDT Surgery [facility] [address] [place] [address] Otto Hernandez MD [address] [place] [address] [address] [place] [address] COLONOSCOPY [facility] Comment on above: COLONOSCOPY Start: 03-17-2024 End: 03-17-2024 Colon ca scrn not hi rsk ind COLORECTAL CANCER SCREENING, NOT HIGH RISK Colon cancer screening 03/17/2024 10:15 AM EDT [facility] Start: 03-17-2024 Subsequent hospital visit by physician 03/17/2024 10:15 AM EDT Hospital Encounter [facility] [address] [place] [address] Otto Hernandez MD [address] [place] [address] [address] [place] [address] [facility] Start: 06-17-2023 Influenza vaccination Flu vaccine (S kendy Ended) [employer] Start: 09-18-2022 Depression Screen Depression Screen [employer] Start: 07-18-2021 Influenza vaccination Flu vaccine (# 1) [employer] Phone: Start: 11-13-2019 Screening for malignant neoplasm of breast Breast cancer screen [employer] Start: 2015 Screening for malignant neoplasm of lung Low dose CT lung screening [employer]: Start: 2015 Shingles Vaccine (1 of 2) Shingles Vaccine (1 of 2) [facility] [employer] Start: 2010 Screening for malignant neoplasm of colon [facility] [employer] Start: 2005 Lipid panel Lipid screen [employer] Phone: Start: 1995 Screening for malignant neoplasm of cervix [employer]: Start: 1986 Screening for malignant neoplasm of cervix Pap smear [employer]: Start: 1984 DTaP/Tdap/Td vaccine (1 - Tdap) DTaP/Tdap/Td vaccine (1 - Tdap) [facility] [employer] Start: 1984 Hepatitis B vaccine (1 of 3 - 19+ 3-dose series) Hepatitis B vaccine (1 of 3 - 19+ 3-dose series) [facility] [employer] Start: 1983 Hepatitis C screening Hepatitis C justin fernandez [facility] [employer] Start: 1980 HIV screening HIV screen [facility] [employer] Start: 1977 COVID-19 Vaccine (1) COVID-19 Vaccin e (1) [facility] [employer] Phone: Start: 1971 Pneumococcal 0-64 years Vaccine (1 - PCV) Pneumococcal 0-64 years Vaccine (1 - PCV) [facility] [employer] Start: 1971 Pneumococcal 0-64 years Vaccine (1 of 2 - PCV) Pneumococcal 0-64 years Vaccine (1 of 2 - PCV) [facility] [employer] Start: 03-13-1966 COVID-19 Vaccine (#1) COVID-19 Vacci ne (#1) [facility] [employer] Start: 1965 Hepatitis B vaccine (1 of 3 - 3-dose series) Hepatitis B vaccine (1 of 3 - 3-dose series) [facility] [employer] Start: 1965 Hepatitis C screening Hepatitis C pa rebecca [facility] [employer] Phone: End: 04-22-2023 ECHO Complete 2D W Doppler W Color ECHO Complete 2D W Doppler W Color Echocardiography Routine Chest pain, unspecified type SOB (shortness of breath) 1 Occurrences starting 04/22/2023 until 04/22/2023 [facility] [email or web address] Work Phone: Comment on above: 1 Occurrences starti ng 04/22/2023 until 04/22/2023 EKG 12 lead EKG 12 lead ECG Routine Colon cancer screening Primary hypertension 03/04/2024 12:16 PM [facility]T [email or web address] End: 04-22-2023 Exercise stress test study CARDIAC STRESS TEST EXERCISE ONLY Card[facility] Routine Chest pain, unspecified type SOB (shortness of breath) 1 Occurrences starting 04/22/2023 until 04/22/2023 [employer] Work Phone: Comment on above: 1 Occurrences lioneli ng 04/22/2023 until 04/22/2023 Immunizations Immunization Date Immunization Notes Care Provider Yelitza solange 11-21-2024 tetanus toxoid, redu perlita diphtheria toxoid, and acellular pertussis vaccine, adsorbed Piyush Kunz DO [facility] P[facility] Date Payer Category Payer Unknown [id number] [id number] 2014 Unknown [id number] 1965 Unknown [id number] 2.16.8 [id number] 1965 Unknown [id number] 2.16.8 [id number] 1965 Unknown [id number] 2.16.8 [id number] 1965 Unknown [id number] 2.16.8 [id number] 1965 Unknown [id number] 2.16.8 [id number] 1965 Unknown [id number] 2.16.8 [id number] Social History Date Type Detail Facility Start: 08-18-2021 End: 01-13-2024 Tobacco smoking status KYIS Current every day smoker [employer] History of tobacco use Cigarette Smoker [employer] Start: 08-18-2021 End: 03-17-2024 Cigarettes smoked current (pack per day) - Reported [employer] Start: 08-18-2021 End: 01-13-2024 Tobacco use and exposure Never used [employer] Start: 08-18-2021 End: 11-21-2024 Alcohol intake Current drinker of alcohol (finding) [employer] Work Phone: Start: 1965 [facility] Work Phone: Exposure to SARS-CoV -2 (event) Not sure [employer] Start: 03-25-2023 History SDOH Alcohol Frequency 2 [employer] Work Phone: Start: 09-18-2021 History SDOH Financial 5 [employer] Work Phone: Start: 09-18-2021 History SDOH Food Worry 1 [employer] Work Phone: Start: 03-25-2023 End: 03-17-2024 Alcohol Use Disorder Identification Test - Consumption [AUDIT-C] [employer] How often to you hav e a drink containing alcohol? Monthly or less [employer] Average Number of Drinks Not on file [employer] (I/We) worried wheth er (my/our) food would run out before (I/we) got money to buy more. Never true [employer] At any time in the p ast 12 months, were you homeless or living in long-term [including now]? No [employer] How often to you hav e a drink containing alcohol? Never [facility] Discharge instructions 11-21-2024 Discharge InstructionsAttachments Note [...] cannot be sent through Care Everywhere.Lacerations: Stitches (Lao)documented in this encounter [facility] Note Date & Type Note Facility Evaluation note Diagnosis Dysfunction of right eustachian tube- Primary Dysfunction of Eustachian tube documented in this encounter [employer] Phone: Evaluation note Note Date & Type Note Facility Evaluation note Diagnosis Chest pain, unspecified type SOB (shortness of breath) Shortness of breath documented in this encounter [facility] [employer] Phone: Evaluation note Note Date & Type Note Facility Evaluation note Diagnosis Colon cancer screening Special screening for malignant neoplasms, colon Primary hypertension Unspecified essential hypertension Colon cancer screening Special screening for malignant neoplasms, colon [facility] Note Date & Type Note Facility Evaluation note Diagnosis Laceration of right ring finger without foreign body without damage to nail, initial encounter- Primary Open displaced fracture of distal phalanx of finger of right hand documented in this encounter [facility] Discharge instructions Attachments Note Date & Type Note Facility Hospital Discharge instructions The following attachments cannot be sent through Care Everywhere.Eustachian Tube Problems (Lao)documented in this encounter [employer]: Summary Purpose Family History No Family History Records FoundNo Family History Records FoundNo Family History Records Found Advance Directives No Advanced Directives Records FoundDocuments on File Type Date Recorded 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 Expl 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 ACP-Advance Directive ACP-Power of Ms Sql Server Developer Healthcare Agents on File Name Relationship Healthcare Agent [facility] Jackeline Alfaro Brother/Sister Primary Decision Maker Date Activated Date Inactivated Comments 03/17/2024 9:18 AM 03/17/2024 1:57 PM Healthcare Agents on File Name [facility] Healthcare Agent [facility] Jackeline Alfaro Brother/Sister Primary Decision Maker Reason for Referral Specialty Diagnoses / Procedures Referred By Jimenez t Referred To Contact Cardiology Diagnoses Chest pain, unspecified type SOB (shortness of breath) R07.9 (ICD-10-CM) - Chest pain, unspecified type Procedures ECHO Complete 2D W Doppler W Color CA ECHO TTHRC R-T 2D W/WOM-MODE COMPL SPEC&COLR D 91287 - CA ECHO TTHRC R-T 2D W/WOM-MODE COMPL SPEC&COLR D Joanie Beasley MD [address] [place] [id number] Referral ID Status Reason Start Date Expiration Date Visits Re quested Visits Authorized [id number] Closed 04/16/2023 04/02/2024 1 1 Specialty Diagnoses / Procedures Referred By Contac t Referred To Contact Cardiology Diagnoses Chest pain, unspecified type SOB (shortness of breath) R07.9 (ICD-10-CM) - Chest pain, unspecified type Procedures CARDIAC STRESS TEST EXERCISE ONLY CA CV STRS TST XERS&/OR RX CONT ECG TRCG ONLY 27690 - CA CV STRS TST XERS&/OR RX CONT ECG TRCG ONLY Joanie Beasley MD [address] [place] [id number] Referral ID Status Reason Start Date Expiration Date V isits Requested Visits Authorized [id number] Not Required - RTA 04/03/2023 04/02/2024 1 1 Specialty Diagnoses / Procedures Referred By Contac t Referred To Contact Cardiology Diagnoses Colon cancer screening Primary hypertension Procedures EKG 12 lead Ace Quigley MD [address] [place] [id number] Referral ID Status Reason Start Date Expiration Date Visits Re quested Visits Authorized [id number] Open 03/04/2024 03/04/2025 1 1 Additional Source Comments INFORMATION SOURCE (unrecogn ized section and content) DATE CREATED AUTHOR 12/12/2020 [employer] [facility] DATE CREATED AUTHOR AUTHOR'S ORGANIZ [...] ECHO Complete 2D W Doppler W Color CA ECHO TTHRC R-T 2D W/WOM-MODE COMPL SPEC&COLR D 10656 - CA ECHO TTHRC R-T 2D W/WOM-MODE COMPL SPEC&COLR D Joanie Beasley MD [address] [place] [address] Referral ID Status Reason Start Date Expiration Date Visits Re quested Visits Authorized [id number] Closed 04/16/2023 04/02/2024 1 1 Specialty Diagnoses / Procedures Referred By Contac t Referred To Contact Cardiology Diagnoses Chest pain, unspecified type SOB (shortness of breath) R07.9 (ICD-10-CM) - Chest pain, unspecified type Procedures CARDIAC STRESS TEST EXERCISE ONLY CA CV STRS TST XERS&/OR RX CONT ECG TRCG ONLY [id number] - CA CV STRS TST XERS&/OR RX CONT ECG TRCG ONLY Joanie Beasley MD [address] [place] [address] Referral ID Status Reason Start Date Expiration Date V isits Requested Visits Authorized [id number] Not Required - RTA 04/03/2023 04/02/2024 1 [...] Care Teams (unrecognized sec tion and content) Senior Java Web Developer Relationship Specialty Start Date End Date Ace Quigley MD [address] [place] [address] PCP - General Internal Medicine 09/18/21 Senior Java Web Developer Relationship Specialty Start Date End Date Ace Quigley MD [address] [place] [phone] PCP - General Internal Medicine 09/18/21 Senior Java Web Developer Relationship Specialty Start Date End Date Ace Quigley [place] [address] PCP - General Internal Medicine 09/18/21 Scheduled [...] BE BASED ON THE PRIMARY CLINICAL RECORDS. [employer] provides no warranty or guarantee of the accuracy or completeness of information in this document.
== END 2025-02-28 08:00 | disposition home or self-care (01) ==
LOC: EC 07:59
PROVIDERS: Visit Provider Orthopaedic Surgery
DX: S62.654D Nondisplaced fracture of middle phalanx of right ring finger, subsequent encounter for fracture with routine healing (principal)
CPT/HCPCS: 73140